=== PATIENT | male | born 1950 | race Caucasian/White ===

== ENCOUNTER 2019-03-02 12:09 | Inpatient (IN) | payer MEDICARE, BC ==
[2019-03-02] MEDS ORDERED: Non-Formulary Medication 1 Each (Betamethasone Dipropionate [Betamethasone Diprop Augmente TOP PRN (17:17)
[2019-03-02] MEDS ORDERED: Docusate Sodium 100 MG Cap PO PRN (17:17)
--- NOTE | 2019-03-02 17:29 | PCM.HP.2 ---
H&P History of Present Illness - General Date of Service: 03/02/19 Admit Problem/Dx: Admission Diagnosis/Problem Admission Diagnosis/Problem Status post total right knee replacement Source of Information: Patient History Limitations: Reports: No Limitations - History of Present Illness Initial Comments - Free Text/Narative: Patient admitted for assistance, PT/OT, after undergoing right total knee replacement. No acute changes with health or baseline pain other than discomfort associated with right knee replacement. Reports that pain is controllable with current meds. ROS negative for any other acute changes. Right Knee Pain Score (Numeric/FACES): 7 - Related Data Allergies/Adverse Reactions: Allergies Allergy/AdvReac Type Severity Reaction Status Date / Time celecoxib [From Celebrex] Allergy Bleeding Verified 05/25/13 21:17 naproxen sodium [From Aleve] Allergy Bleeding Verified 05/25/13 21:17 zolpidem tartrate Allergy Disorientat Verified 05/25/13 21:18 [From Ambien] ion Home Medications: Home Meds Acetaminophen 1,000 mg PO Q6H PRN 03/02/19 [History] Allopurinol [Zyloprim] 100 mg PO DAILY 03/02/19 [History] Apixaban [Eliquis] 2.5 mg PO BID 03/02/19 [History] Betamethasone Dipropionate [Betamethasone Diprop Augmented] 1 applic TOP BID PRN 03/02/19 [History] Calcitriol 1 cap PO Q2D 03/02/19 [History] Calcium Carbonate [Tums] 500 mg PO TIDMEALS 03/02/19 [History] Cholecalciferol (Vitamin D3) [Vitamin D3] 1 tab PO DAILY 03/02/19 [History] Clotrimazole [Clotrimazole 1%] 1 applic TOP BID 03/02/19 [History] Docusate Sodium 1 cap PO DAILY PRN 03/02/19 [History] Gabapentin [Neurontin] 300 mg PO DAILY 03/02/19 [History] Multivit-Min/Iron/Folic Acid/K [Bariatric Mv-Iron 45 mg Cap] 1 cap PO BID [History] Oxybutynin Chloride [Oxybutynin Chloride ER] 15 mg PO DAILY 03/02/19 [History] Pantoprazole Sodium [Protonix] 20 mg PO BIDAC 03/02/19 [History] Polyethylene Glycol 3350 [MiraLAX] 17 gm PO DAILY 03/02/19 [History] Potassium Citrate [Potassium Citrate ER] 1 tab PO TIDMEALS 03/02/19 [History] Sennosides/Docusate Sodium [Dok Plus Tablet] 1 tab PO BID 03/02/19 [History] Sertraline [Zoloft] 50 mg PO DAILY 03/02/19 [History] amLODIPine [Norvasc] 2.5 mg PO DAILY 03/02/19 [History] oxyCODONE 1 - 2 tab PO Q4H PRN 03/02/19 [History] predniSONE [Prednisone] 3 mg PO DAILY 03/02/19 [History] Past Medical History HEENT History: Reports: Impaired Vision Cardiovascular History: Reports: Arrhythmia (frequent PVCs), Hypertension, Other (See Below) (venous insufficiency/lymphedema lower extrem.) Respiratory History: Reports: Sleep Apnea Gastrointestinal History: Reports: Bowel Obstruction, Chronic Constipation, GERD , GI Bleed, Other (See Below) Other Gastrointestinal History: Hx of abdominal hernia. hx of abdominal hernia Hx of Gastric bypass Genitourinary History: Reports: Chronic Renal Insuffiency, Renal Calculus, Urinary Incontinence Musculoskeletal History: Reports: Arthritis, Back Pain, Chronic, Gout, Osteoporosis, Other (See Below) (lumbar spine stenosis, cervical spondylosis/ spinal fusion) Neurological History: Reports: Headaches, Chronic, Neuropathy, Peripheral Endocrine/Metabolic History: Reports: Diabetes, Type II, Osteoporosis Hematologic History: Reports: Anemia, Iron Deficiency Immunologic History: Reports: Other (See Below) (Psoriatic arthritis) - Past Surgical History GI Surgical History: Reports: Bariatric Procedure, Cholecystectomy, Colonoscopy , Hernia, Inguinal, Hernia Repair/Other Neurological Surgical History: Reports: Lumbar Spine Musculoskeletal Surgical History: Reports: Hip Replacement, Knee Replacement Social & Family History - Family History HEENT: Reports: Cataract, Hearing Impairment Cardiac: Reports: Hypertension, [place] Musculoskeletal: Reports: Arthritis, Gout Endocrine/Metabolic: Reports: Diabetes, type II Dermatologic: Reports: Psoriasis Oncologic: Reports: Pancreatic - Tobacco Use Smoking Status *Q: Former Smoker Used Tobacco, but Quit: Yes Month/Year Tobacco Last Used: 20 years ago Tobacco Use Comment: Smoked 20 years ago Second Hand Smoke Exposure: No - Caffeine Use Caffeine Use: Reports: Coffee - Alcohol Use Alcohol Use History: No Days Per Week of Alcohol Use: 0 Date/Time of Last Drink Comment: 10-12 years ago - Recreational Drug Use Recreational Drug Use: No Drug Use in Last 12 Months: No H&P Review of Systems - Review of Systems: Review Of Systems: Comprehensive ROS is negative, except as noted in HPI. Exam - Exam Exam: See Below - Vital Signs Vital Signs: Last Vital Signs Temp 36.6 C 03/02/19 15:42 Pulse 68 03/02/19 15:42 Resp 20 03/02/19 15:42 BP 121/74 03/02/19 15:42 Pulse Ox 92 L 03/02/19 15:42 Weight: 94.801 kg - Exam Quality Assessment: DVT Prophylaxis General: Alert, Oriented, Cooperative HEENT: Conjunctiva Clear, EOMI, Hearing Intact, Mucosa Moist & [place], Nares Patent, Pupils Equal, Pupils Reactive Neck: Supple, Trachea Midline Lungs: Clear to Auscultation, Normal Respiratory Effort Cardiovascular: Irregular Rhythm GI/Abdominal Exam: Normal Bowel Sounds, Soft, Non-Tender, No Distention (Male) Exam: Deferred Rectal (Males) Exam: Deferred Back Exam: No: CVA Tenderness (L), CVA Tenderness (R), Muscle Spasm, Paraspinal Tenderness, Vertebral Tenderness Extremities: Normal Capillary Refill, Other (equal strength bilaterally upper and lower limbs) Skin: Warm, Dry Psychiatric: Alert, Normal Affect, Normal Mood - Problem List (1) Status post right knee replacement SNOMED Code(s): 4773172473168, 395684662, 5651731258645 ICD Code: Z96.651 - PRESENCE OF RIGHT ARTIFICIAL KNEE JOINT Status: Acute Priority: High Current Visit: Yes Onset Date: ~02/26/19 Problem Details : Here for PT/OT s/p procedure. (2) Hypertension SNOMED Code(s): 62742357 ICD Code: I10 - ESSENTIAL (PRIMARY) HYPERTENSION Status: Chronic Priority : Low Current Visit: No Problem Details: stable per patient. Monitor trends Qualifiers: Hypertension type: essential hypertension Qualified Code(s): I10 - Essential (primary) hypertension (3) Sleep apnea SNOMED Code(s): 42205413 ICD Code: G47.30 - SLEEP APNEA, UNSPECIFIED Status: Chronic Priority: Low Current Visit: No Problem Details: stable per patient Qualifiers: Sleep apnea type: unspecified type Qualified Code(s): G47.30 - Sleep apnea , unspecified (4) Osteoporosis SNOMED Code(s): 03664807 ICD Code: M81.0 - AGE-RELATED OSTEOPOROSIS W/O CURRENT PATHOLOGICAL FRACTURE Status: Chronic Priority: Low Current Visit: No Problem Details: stable per patient Qualifiers: Osteoporosis type: age-related Presence of current pathological fracture: without current pathological fracture Qualified Code(s): M81.0 - Age-related osteoporosis without current pathological fracture (5) Iron deficiency anemia SNOMED Code(s): 99840794 ICD Code: D50.9 - IRON DEFICIENCY ANEMIA, UNSPECIFIED Status: Chronic Priority: Low Current Visit: No Problem Details: stable per patient. Recheck labs in 2 days. Qualifiers: Iron deficiency anemia type: unspecified iron deficiency Qualified Code(s) : D50.9 - Iron deficiency anemia, unspecified (6) Chronic kidney disease SNOMED Code(s): 496726749 ICD Code: N18.9 - CHRONIC KIDNEY DISEASE, UNSPECIFIED Status: Chronic Priority: Low Current Visit: No Problem Details: stable per patient Qualifiers: Chronic kidney disease stage: stage 3 (moderate) Qualified Code(s): N18.3 - Chronic kidney disease, stage 3 (moderate) (7) Type 2 diabetes mellitus SNOMED Code(s): 95793754 ICD Code: E11.9 - TYPE 2 DIABETES MELLITUS WITHOUT COMPLICATIONS Status: Chronic Priority: Low Current Visit: Yes Problem Details: stable per patient Qualifiers: Diabetes mellitus buttermaker insulin use: without correction use (8) Degenerative arthritis of spine SNOMED Code(s): 6303084 ICD Code: M47.9 - SPONDYLOSIS, UNSPECIFIED Status: Chronic Priority: Low Current Visit: No Problem Details: significant issues with stenosis/ arthritic changes/chronic pain down length of spine (9) GERD (gastroesophageal reflux disease) SNOMED Code(s): 234195311 ICD Code: K21.9 - GASTRO-ESOPHAGEAL REFLUX DISEASE WITHOUT ESOPHAGITIS Status: Chronic Priority: Low Current Visit: Yes Qualifiers: Esophagitis presence: esophagitis presence not specified Qualified Code(s) : K21.9 - Gastro-esophageal reflux disease without esophagitis (10) Chronic pain SNOMED Code(s): 89674558 ICD Code: G89.29 - OTHER CHRONIC PAIN Status: Chronic Priority: Low Current Visit: Yes Problem Details: Pain medication agreement with primary providers. 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 SNOMED Code(s): 42889228 ICD Code: I49.3 - VENTRICULAR PREMATURE DEPOLARIZATION Status: Chronic Priority: Low Current Visit: No Problem Details: Patient reports multiple workups in past and says that findings were 'unremarkable' (13) S/P gastric bypass SNOMED Code(s): 640603046, 214601890, 135944910, 875395353 ICD Code: Z98.84 - BARIATRIC SURGERY STATUS Status: Chronic Priority: Low Current Visit: No Problem Details: H/x bariatric surgery Problem List Initiated/Reviewed/Updated: Yes Orders Last 24hrs: Active Orders 24 hr Category Date Time Status Patient Status [ADT] Routine ADT 03/02/19 17:13 Ordered Ambulate [RC] ASDIRECTED Care 03/02/19 17:13 Ordered Height and Weight [RC] UPON Care 03/02/19 17:13 Ordered Pulse Oximetry [RC] PRN Care 03/02/19 17:16 Ordered Up ad Shazia [RC] ASDIRECTED Care 03/02/19 17:13 Ordered Vital Signs [RC] QSHIFT Care 03/02/19 17:13 Ordered Consult to Physical Therapy [PT Evaluation and Cons 03/02/19 17:17 Ordered Treatment] [CONS] Routine OT Evaluation and Treatment [CONS] Routine Cons 03/02/19 17:17 Ordered Full Liquid Diet [DIET] Diet 03/02/19 Dinner Ordered Acetaminophen [Tylenol Extra Strength] Med 03/02/19 17:17 Ordered 1,000 mg PO Q6H PRN Allopurinol [Zyloprim] Med 03/03/19 08:00 Ordered 100 mg PO DAILY Apixaban [Eliquis] Med 03/02/19 18:00 Ordered 2.5 mg PO BID Betamethasone Dipropionate [Betamethasone Diprop Med 03/02/19 17:17 Ordered Augmented] 1 applic TOP BID PRN Calcitriol [Rocaltrol] Med 03/02/19 17:30 Ordered 1 cap PO Q2D Calcium Carbonate [Tums] Med 03/02/19 18:00 Ordered 500 mg PO TIDMEALS Cholecalciferol (Vitamin D3) [Vitamin D3] Med 03/03/19 08:00 Ordered 1 tab PO DAILY Clotrimazole [Clotrimazole 1%] Med 03/02/19 18:00 Ordered 1 applic TOP BID Docusate Sodium [Colace] Med 03/02/19 17:17 Ordered 1 cap PO DAILY PRN Docusate Sodium/Sennosides [Senna Plus] Med 03/02/19 18:00 Ordered 1 tab PO BID Gabapentin [Neurontin] Med 03/03/19 08:00 Ordered 300 mg PO DAILY Oxybutynin Chloride [Oxybutynin Chloride ER] Med 03/03/19 08:00 Ordered 15 mg PO DAILY Pantoprazole Sodium [Protonix] Med 03/02/19 17:30 Ordered 20 mg PO BIDAC Polyethylene Glycol 3350 [MiraLAX] Med 03/03/19 08:00 Ordered 17 gm PO DAILY Potassium Citrate [Potassium Citrate ER] Med 03/02/19 18:00 Ordered 1 tab PO TIDMEALS Sertraline [Zoloft] Med 03/03/19 08:00 Ordered 50 mg PO DAILY amLODIPine [Norvasc] Med 03/03/19 08:00 Ordered 2.5 mg PO DAILY oxyCODONE Med 03/02/19 17:17 Ordered 5 - 10 mg PO Q4H PRN predniSONE Med 03/03/19 08:00 Ordered 3 mg PO DAILY Resuscitation Status Routine Resus Stat 03/02/19 17:13 Ordered Medication Orders Acetaminophen (Tylenol Extra Strength) 1,000 mg PO Q6H PRN PRN Reason: Pain Allopurinol (Zyloprim) 100 mg PO DAILY JO Apixaban (Eliquis) 2.5 mg PO BID JO Calcitriol (Rocaltrol) mcg PO Q2D JO Calcium Carbonate/Glycine (Tums) 500 mg PO TIDMEALS JO Clotrimazole (Clotrimazole 1%) gm TOP BID JO Docusate Sodium (Colace) mg PO DAILY PRN PRN Reason: Constipation Gabapentin (Neurontin) 300 mg PO DAILY JO Non-Formulary Medication (Amlodipine [Norvasc]) 2.5 mg PO DAILY JO Non-Formulary Medication (Betamethasone Dipropionate [Betamethasone Diprop Augmented]) 1 applic TOP BID PRN PRN Reason: Rash Non-Formulary Medication (Cholecalciferol (Vitamin D3) [Vitamin D3]) 1 tab PO DAILY JO Non-Formulary Medication (Oxybutynin Chloride [Oxybutynin Chloride Er]) 15 mg PO DAILY JO Non-Formulary Medication (Pantoprazole Sodium [Protonix]) 20 mg PO BIDAC JO Non-Formulary Medication (Potassium Citrate [Potassium Citrate Er]) 1 tab PO TIDMEALS JO Oxycodone HCl (Oxycodone) 5 - 10 mg PO Q4H PRN PRN Reason: Pain Polyethylene Glycol (Miralax) 17 gm PO DAILY [facility] Prednisone (Prednisone) 3 mg PO DAILY JO Senna/Docusate Sodium (Senna Plus) 1 tab PO BID JO Sertraline HCl (Zoloft) 50 mg PO DAILY [facility] Assessment/Plan Comment:: as above. Patient plans on spending a few days on swing bed receiving PT/OT with discharge back to home planned once cleared. - Mortality Measure Prognosis:: Good
[2019-03-02] MEDS ORDERED: Clotrimazole 1% Crm 15 GM Tube TOP SCH ×2 (18:00→20:00)
[2019-03-02] MEDS ORDERED: POTASSIUM CITRATE PO SCH (18:00)
[2019-03-02] MEDS: Pantoprazole 40 MG Tab.CR PO SCH (18:07)
[2019-03-02] MEDS: Apixaban 2.5 MG Tab PO SCH (18:07)
[2019-03-02] MEDS: Calcitriol 0.25 MCG Cap PO SCH (18:21)
[2019-03-02] MEDS: Calcium Carbonate 500 MG Tab.Chew PO SCH (18:21)
[2019-03-02] MEDS ORDERED: Triamcinolone Acetonide 0.1% Crm 15 GM Tube TOP SCH ×2 (20:00→20:59)
[2019-03-02] MEDS: oxyCODONE 5 MG Tab PO PRN (20:22)
[2019-03-03] MEDS: oxyCODONE 5 MG Tab PO PRN ×2 (06:12→20:37)
[2019-03-03] MEDS ORDERED: Oxybutynin 5 MG Tab PO SCH (08:00)
[2019-03-03] MEDS ORDERED: TRIAMCINOLONE ACETONIDE 0.5% TOP SCH (08:00)
[2019-03-03] MEDS: Pantoprazole 40 MG Tab.CR PO SCH ×2 (08:04→17:21)
[2019-03-03] MEDS: Apixaban 2.5 MG Tab PO SCH ×2 (08:05→17:21)
[2019-03-03] MEDS: Gabapentin 300 MG Cap PO SCH (08:05)
[2019-03-03] MEDS: Polyethylene Glycol 3350 Powder 17 GM Packet PO SCH (08:05)
[2019-03-03] MEDS: amLODIPine 5 MG Tab PO SCH (08:06)
[2019-03-03] MEDS: predniSONE 1 MG Tab PO SCH (08:07)
[2019-03-03] MEDS: Triamcinolone Acetonide 0.5% Crm 15 GM Tube TOP SCH ×2 (08:09→20:39)
[2019-03-03] MEDS: Allopurinol 100 MG Tab PO SCH (08:10)
[2019-03-03] MEDS: Calcium Carbonate 500 MG Tab.Chew PO SCH ×3 (08:10→17:22)
[2019-03-03] MEDS: Sertraline 50 MG Tab PO SCH (08:10)
[2019-03-03] MEDS: Cholecalciferol (Vitamin D3) 25 MCG Tab PO SCH (08:10)
--- OUTSIDE RECORDS SUMMARY | 2019-03-03 13:31 | XMSREPORT ---
:1950 Author Organization [facility] Address [address] [place] [address] Care Team Providers Name Role Phone DominguezMariano PA-C Unavailable Yocasta Torres RN, CDE Unavailable Porter Mcfadden MD Unavailable Donovan Hudson MD Unavailable Tommie Ledesma MD Primary Care Provider Tommie Ledesma MD Attributed Provider Marika Palacios RN [employer] AttendantBusiness Integration Analyst Reason for Referral Comprehensive Primary Care Plus (Routine) Status Reason Specialty Diagnoses / Referred By Referred To Procedures Contact Contact New Request Gastroenterology Diagnoses History of gastric bypass Edgar, Loio Digestive MD David [address] [place] [address] [place] [address] Phone: Scheduling Instructions This is an electronic referral. Reason for Visit Auth/Cert (Routine) Status Reason Specialty Diagnoses / Referred By Referred To Procedures Contact Contact Continuity of Care Diagnoses Unilateral primary osteoarthritis, right knee Genaro Vallecillo, Procedures ARTHROPLASTY KNEE CONDYLE & PLATEAU MEDIAL & LAT COMPARTMENTS DENNIS WISDOM MD [address] [place] [address] Encounter Details Date Type Department Care Team Description 02/26/2019 - Hospital Encounter [facility] Genaro Vallecillo MD [address] [place] [address] [phone] Psoriatic arthritis 03/02/2019 CENTER 8CD MED SURG Paul Singh MD [address] [place] [address] [phone] ([facility]) David Brock MD [address] [place] [address] [phone] [address] [place], [place] [id number] Allergies Active Allergy Reactions Severity Noted Date Comments Gnp Naproxen Sodium Nausea and Vomiting, 09/23/2011 anemia Diarrhea, Other (Specify in Comments) Zolpidem Tartrate Other (Specify in 09/23/2011 Balance issues, sleep Comments) walking Aspirin Other (Specify in 11/06/2012 2006 had GI bleeding Comments) occult source and aspirin stopped Celecoxib Nausea and Vomiting, 09/23/2011 GI bleed Diarrhea documented as of this encounter (statuses as of 03/02/2019) Medications Medication Sig Dispensed Refills Start Date End Date Status vitamin D, Take 1,000 Units 0 Active cholecalciferol, (D by mouth 1 time 1000) 1000 UNITS per day. CAPS blood glucose test 1 time per day Use 100 each 4 01/06/2017 Active strip (CHUNG CONTOUR to test blood NEXT) sugar one time a STRPIndications: day at alternating Type 2 diabetes times. Not on mellitus without insulin ICD complication, E11.9 without long-term current use of insulin ([facility]) Blood Glucose 1 each 2 times a 20 each 4 12/01/2017 Active Monitoring Suppl day (CONTOUR NEXT MONITOR) w/Device KITIndications: Type 2 diabetes mellitus without complication, without long-term current use of insulin ([facility]) acetaminophen Take 2 tablets 0 09/17/2018 Active (TYLENOL) 500 mg (1,000 mg) by tablet mouth every 6 hours as needed for headache pantoprazole Take 1 tablet (20 90 tablet 3 09/17/2018 Active (PROTONIX) 20 mg mg) by mouth 2 enteric coated times a day before tabletIndications: meals GI bleed allopurinol Take 1 tablet (100 90 tablet 4 01/12/2019 01/17/2020 Active (ZYLOPRIM) 100 mg mg) by mouth 1 tabletIndications: time per day Idiopathic gout, unspecified chronicity, unspecified site Additional information Patient taking differently: 100 mg Oral Bedtime, Informant: Self, Reported on 02/16/2019 9:28 AM amLODIPine (NORVASC) 2.5 mg Take 1 tablet 90 tablet 4 01/12/20192019 Active tabletIndications: Essential (2.5 mg) by hypertension mouth 1 time per day Additional information Patient taking differently: 2.5 mg Oral Every evening, Informant: Self, Reported on 02/16/2019 9:28 AM calcitriol (ROCALTROL) 0.25 Take 1 capsule 90 capsule 4 01/12/20192019 Active mcg capsuleIndications: (0.25 mcg) by Secondary mouth Every hyperparathyroidism (HCC) other day clotrimazole (LOTRIMIN-AF) Apply to 1 Tube 4 01/12/2019 01/17/2020 Active 1 % creamIndications: Tinea affected area 2 cruris times a day For groin rash gabapentin (NEURONTIN) 300 Take 1 capsule 30 capsule 0 01/12/2019 Active mg capsuleIndications: S/P (300 mg) by cervical spinal fusion mouth 1 time per day Additional information Patient taking differently: 300 mg Oral Bedtime, Informant: Self, Reported on 02/16/2019 9:28 AM Lancets (MICROLET) 1 each 2 times a 100 each 4 01/12/2019 01/17/2020 Active MISCIndications: Type 2 day Use to test diabetes mellitus without blood sugars one complication, without time a day Not long-term current use of on insulin ICD insulin (HCC) E11.9 potassium citrate Take 1 tablet (10 270 tablet 4 01/12/2019 01/17/2020 Active (UROCIT-K) 10 mEq mEq) by mouth 3 TBCRIndications: Kidney times a day with stones meals sertraline (ZOLOFT) 50 mg Take 1 tablet (50 90 tablet 4 01/12/20192019 Active tabletIndications: mg) by mouth 1 Dysthymia time per day Additional information Patient taking differently: 50 mg Oral Bedtime, Informant: Self, Reported on 02/16/2019 9:28 AM oxybutynin (DITROPAN-XL) 15 mg Take 1 tablet (15 mg) 90 tablet 3 2018 Active SR tablet (24 hr)Indications: by mouth 1 time per Lower urinary tract symptoms day (LUTS), Urge incontinence of urine Additional information Patient taking differently: 15 mg Oral Bedtime, Informant: Self, Reported on 02/16/2019 9:28 AM bariatric advantage Take 1 tablet 180 4 01/22/2019 04/22/2019 Active advanced multi EA chewable by mouth 2 tablet multivitaminIndications: times a day S/P gastric bypass predniSONE 1 mg Take 3 tablets 270 1 02/08/2019 Active tabletIndications: (3 mg) by tablet Psoriatic arthritis (HCC), mouth 1 time Psoriasis per day betamethasone dipropionate Apply 0 Active augmented (DIPROLENE AF) topically 2 0.05 % CREA times a day as needed for rash (on elbows and hands) Contour NEXT test 2 times a day 200 each 4 02/09/2019 Active stripIndications: Type 2 diabetes mellitus without complication, without long-term current use of insulin ([facility]) apixaban (ELIQUIS) 2.5 MG Take 1 tablet 0 03/02/2019 03/12/2019 Active tabletIndications: (2.5 mg) by Prophylaxis of DVT in mouth 2 times Orthopedic Surgery a day for 10 days Indications: Prophylaxis of Deep Vein Thrombosis in Orthopedic Surgery polyethylene glycol Take 1 packet 0 03/03/2019 Active (MIRALAX) by mouth 1 packetIndications: S/P time per day total knee arthroplasty, Dissolve in 4 right to 8 ounces of water, juice, soda, coffee, tea. senna-docusate sodium Take 1 tablet 0 03/02/2019 Active (SENOKOT-S;PERICOLACE) by mouth 2 8.6-50 MG times a day tabletIndications: S/P total knee arthroplasty, right oxyCODONE (OXY-IR) 5 mg Take 1 tab for 0 03/02/2019 Active tablet (immediate moderate pain release)Indications: S/P and 2 tabs for total knee arthroplasty, severe pain right every 4 hours as needed by mouth. docusate sodium (COLACE) Take 1 capsule 0 03/02/2019 Active 100 mg capsule (100 mg) by mouth 1 time a day as needed for constipation calcium carbonate (TUMS) Take 1 tablet 90 0 03/02/2019 Active 500 MG chewable tablet (500 mg) by tablet mouth 3 times a day with meals Calcium supplement calcium carbonate (TUMS) Take 1 tablet 90 0 07/14/2012 03/02/2019 Discontinued 500 MG chewable tablet by mouth 3 tablet (Reorder) times a day with meals. diphenhydrAMINE HCl, Take 50 mg by 0 03/02/2019 Discontinued Sleep, (ZZZQUIL PO) mouth at (Stop Taking bedtime as at Discharge) needed furosemide (LASIX) 20 mg Take 1 tablet 30 4 01/12/2019 03/02/2019 Discontinued tabletIndications: CKD (20 mg) by tablet (Stop Taking (chronic kidney disease) mouth 1 time a at Discharge) stage 3, GFR 30-59 ml/min day as needed (HCC), Lower extremity (swelling) edema miconazole (MONISTAT-DERM) Apply 1 1 Tube 4 01/12/2019 03/02/2019 Discontinued 2 % CREAIndications: Tinea application (Stop Taking cruris topically 2 at Discharge) times a day triamcinolone acetonide Apply 0 03/02/2019 Discontinued (KENALOG,ARISTOCORT) 0.1 % topically 2 (Stop Taking cream times a day at Discharge) docusate sodium (COLACE) Take 100 mg by 0 03/02/2019 Discontinued 100 mg capsule mouth 1 time a (Reorder) day as needed HYDROcodone-acetaminophen TAKE 1 TABLET 60 0 02/18/2019 03/02/2019 Discontinued (NORCO) 5-325 mg BY MOUTH EVERY tablet (Stop Taking tabletIndications: 12 HOURS at Discharge) Cervical spondylosis with NEEDED FOR myelopathy and MODERATE PAIN radiculopathy, Lumbar OR SEVERE PAIN degenerative disc disease oxyCODONE (OXY-IR) 5 mg Take 1-2 0 03/02/2019 03/02/2019 Discontinued tablet (immediate tablets (5-10 release)Indications: S/P mg) by mouth total knee arthroplasty, Every 4 hours right as needed for moderate pain or severe pain documented as of this encounter (statuses as of 03/02/2019) Active Problems Problem Noted Date Lower urinary tract symptoms (LUTS) 12/09/2018 Frequent PVCs 09/28/2018 GI bleed 09/15/2018 Overview: Related to ulcer at gastrojejunal anastamotic site in 09/2018. Chronic headache 07/10/2018 Overview: Followed by neurology. MRI brain showing abnormal splenule lesion that was overall stable on follow up MRI. Urinary incontinence 04/06/2018 Peripheral polyneuropathy 04/06/2018 Tension-type headache, not intractable 03/09/2018 Lumbar degenerative disc disease 01/15/2018 Primary osteoarthritis of right knee 11/14/2017 Chronic left shoulder pain 11/14/2017 Status post total left knee replacement 07/16/2017 Overview: 06/17/17 History of gastric ulcer 01/06/2017 Chronic GERD 01/06/2017 S/P cervical spinal fusion 10/21/2016 Pain medication agreement signed 08/28/2016 Overview: Prescriber: Tommie Ledesma MD Before prescribing any opioids for this patient, please contact the front end software developer staff at No information on file.. Pharmacy: [facility] Medication: hydrocodone Date Contract Signed: 01/01/16 Patient needs to see prescriber at intervals of: every 6 months Last urine / blood drug screen: 01/01/16 Incisional hernia, without obstruction or gangrene 07/01/2016 Overview: S/p repair. History of gastric bypass 01/01/2016 Cervical spondylosis with myelopathy and radiculopathy 05/29/2015 Neurogenic claudication due to lumbar spinal stenosis 03/29/2015 Encounter for long-term (current) use of high-risk medication 03/14/2015 Type 2 diabetes mellitus with complication 02/19/2015 Gout 09/02/2014 Bilateral carpal tunnel syndrome 08/29/2014 CKD (chronic kidney disease) stage 3, GFR 30-59 ml/min 04/19/2014 Iron deficiency anemia 12/14/2013 Status post total replacement of right hip 06/14/2013 Overview: 05/17/13 Psoriasis 04/20/2013 History of kidney stones 05/27/2012 Osteoporosis 02/19/2012 Overview: Follows with rheumatology. Has been on reclast in the past. Bone density improved to osteopenia on DEXA in 2017. Improved further on DEXA in 2019. Psoriatic arthritis 02/19/2012 Essential hypertension 02/02/2012 Obstructive sleep apnea 02/02/2012 Overview: Bi-PAP 14/10 cmH2O/AHI 29 Wears consistently Venous insufficiency of leg 10/29/2011 Overview: S/P Right GSV KULDEEP 12/21/11 and Left GSV KULDEEP 05/21/[address] Hobson October 20, 2015 L) GSV ELVS and [address] Kauffman. Last Assessment & Plan: With ongoing edema and symptoms of aching and fatigue, recommend trying to transition to compression stockings 20 to 30mmHg for better consistent pressure throughout the day as there is concern his circ aid wraps may be loosening. Will repeat venous insufficieny with mapping in 3 months and f/u appointment at that time to see how the compression stockings are working and review his results. Aneurysm of splenic artery 03/21/2011 Overview: 1) 03/21/11 Mesenteric angiogram of 3 cm splenic artery aneurysm treated with coil embolization per Dr. Kauffman with exclusion. 2) 04/30/13 F/u mesenteric angiogram confirmed exclusion of previously embolized splenic artery aneurysm with no new splenic artery aneurysms. Last Assessment & Plan: Patient seen by Dr. Kauffman today who also reviewed CTA abdomen; splenic artery aneurysm is stable s/p coil embolization and recommend f/u in one year with CTA abdomen to monitor this Lymphedema 11/02/2010 Overview: Wears compression stockings and compression wraps over that on his lower legs. History of Helicobacter pylori infection 06/19/2007 Obesity, morbid, BMI 40.0-49.9 02/26/2006 Overview: Gastric bypass 1999 documented as of this encounter (statuses as of 03/02/2019) Resolved Problems Problem Noted Date Resolved Date Osteoarthritis of knees, bilateral 04/01/2016 11/14/2017 Symptomatic varicose veins of both lower extremities 08/08/2015 07/10/2018 Dysphagia 12/06/2013 01/06/2017 Small bowel obstruction due to adhesions 06/07/2013 01/01/2016 Overview: 2-2013 Medical home 02/15/2013 03/07/2015 Hematospermia 02/15/2013 07/10/2018 SYED (acute kidney injury) 09/11/2012 07/01/2016 Encounter for long-term (current) use of other medications 02/19/20122015 Spinal stenosis, lumbar region, without neurogenic claudication 09/27/2011 Hemorrhage of rectum and anus 03/19/2011 02/02/2012 Hemorrhage of gastrointestinal tract 06/19/2007 02/02/2012 documented as of this encounter (statuses as of 03/02/2019) Immunizations Name Administration Dates Next Due FLU VACCINE TRIVALENT 02/11/2012 MULTIDOSE(Fluvirin,Afluria) Influenza Trivalent w/preserv 02/11/2012, 02/06/2011, 02/05/2010, 03/16/2009, 03/20/2006 FLU VACCINE HIGH DOSE 65YR+(Fluzone) 01/12/2019, 01/12/2019, 01/05/2018, 01/05/2018 FLU VACCINE MULTIDOSE 03/07/2015, 02/14/2014 0.5mL(6MO+Fluzone/Flulaval,Afluria) FLU VACCINE SINGLE DOSE 01/06/2017, 03/20/2016 0.5mL(6MO+Fluzone/Flulaval/Fluarix,3Y R+Afluria) H1N1 Injectable Vaccine 03/22/2009 Ibandronate Sodium 3mg/3ml Iv Kit 11/19/2011 02/19/2012 Influenza Vaccine,unspecified 01/06/2017, 03/20/2016, 03/07/2015, 02/14/2014, 02/06/2011, 02/05/2010, 03/16/2009, 01/27/2008, 03/20/2006 Pneumococcal Conj PCV13 01/06/2017 Pneumococcal Polysaccharide PPSV23 06/09/2017, 02/17/2001 Reclast (Zoledronic Acid) 03/20/2016, 03/08/2015, 02/28/2014, 03/21/2017 02/18/2013, 02/18/2012 TDAP 06/19/2007 Td(adult)preservative free 01/05/2018 documented as of this encounter Social History Tobacco Use Types Packs/Day Years Used Date Former Smoker Cigarettes 1 25 01/07/1972 - 04/14/2000 Smokeless Tobacco: Never Used Alcohol Use Drinks/Week oz/Week Comments No Hasn't had any alcohol since 03/2006 Sexually Active Control Partners Comments Not Currently None Female Sex Assigned at Date Recorded Male 03/24/2018 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 documented as of this encounter Last Filed Vital Signs Vital Sign Reading Time Taken Comments Blood Pressure 155/69 03/02/2019 10:52 AM RECORDS CLERK Pulse 56 03/02/2019 10:52 AM RECORDS CLERK Temperature 36.9 C (98.5 F) 03/02/2019 10:52 AM RECORDS CLERK Respiratory Rate 15 03/02/2019 10:52 AM RECORDS CLERK Oxygen Saturation 94% 03/02/2019 10:52 AM RECORDS CLERK Inhaled Oxygen Concentration - - Weight 92 kg (202 lb 13.2 oz) 02/26/2019 7:51 AM RECORDS CLERK Height 161.3 cm (5' 3.5") 02/26/2019 7:51 AM RECORDS CLERK Body Mass Index 35.36 02/26/2019 7:51 AM RECORDS CLERK documented in this encounter Functional Status Functional Status Response Date of Assessment Is the person deaf or does he/she have serious difficulty No 02/26/2019 hearing? Is this person blind or does he/she have difficulty No 02/26/2019 seeing even when wearing glasses? Do you have difficulty with walking, balance, climbing Yes 02/26/2019 stairs, or had a fall in the last 3 months? Does the patient have difficulty dressing or bathing? No 02/23/2019 Because of a physical, mental, or emotional condition; No 02/23/2019 does this person have difficulty doing errands alone such as visiting a doctor's office or shopping? Cognitive Status Response Date of Assessment Because of a physical, mental, or emotional condition; No 02/23/2019 does this person have serious difficulty concentrating, remembering, or making decisions? documented as of this encounter Discharge Summaries David Hernández MD - 03/02/2019 12:43 PM CST [facility] Discharge Summary Name: Johnny Patino [place] #: [id number] : 1950 69yr PCP: Tommie Ledesma MD Date of Admission: 02/26/2019 7:18 AM Date of Discharge: 03/02/2019 Attending Physician: David Hernández MD Discharge Diagnosis: 1. Psoriatic arthritis s/p right TKA 2. Dysphagia with food impaction 3. Hypertension 4. Hx of gastric bypass 5. Depression 6. CKD stage III 7. Diabetes mellitus type II 8. SERENA Discharge Medications: Medication List START taking these medications apixaban 2.5 MG tablet Commonly known as: ELIQUIS Take 1 tablet (2.5 mg) by mouth 2 times a day for 10 days Indications: Prophylaxis of Deep Vein Thrombosis in Orthopedic Surgery oxyCODONE 5 mg tablet (immediate release) Commonly known as: OXY-IR Take 1-2 tablets (5-10 mg) by mouth Every 4 hours as needed for moderate pain or severe pain polyethylene glycol packet Commonly known as: MIRALAX Take 1 packet by mouth 1 time per day Dissolve in 4 to 8 ounces of water, juice , soda, coffee, tea. Start taking on: 03/03/2019 senna-docusate sodium 8.6-50 MG tablet Commonly known as: SENOKOT-S;PERICOLACE Take 1 tablet by mouth 2 times a day CHANGE how you take these medications allopurinol 100 mg tablet Commonly known as: ZYLOPRIM Take 1 tablet (100 mg) by mouth 1 time per day What changed: when to take this amLODIPine 2.5 mg tablet Commonly known as: NORVASC Take 1 tablet (2.5 mg) by mouth 1 time per day What changed: when to take this gabapentin 300 mg capsule Commonly known as: NEURONTIN Take 1 capsule (300 mg) by mouth 1 time per day What changed: when to take this oxybutynin 15 mg SR tablet (24 hr) Commonly known as: DITROPAN-XL Take 1 tablet (15 mg) by mouth 1 time per day What changed: when to take this sertraline 50 mg tablet Commonly known as: ZOLOFT Take 1 tablet (50 mg) by mouth 1 time per day What changed: when to take this CONTINUE taking these medications acetaminophen 500 mg tablet Commonly known as: TYLENOL bariatric advantage advanced multi EA chewable multivitamin Take 1 tablet by mouth 2 times a day betamethasone dipropionate augmented 0.05 % Crea Commonly known as: DIPROLENE AF * blood glucose test strip Generic drug: blood glucose test strip 1 time per day Use to test blood sugar one time a day at alternating times. Not on insulin ICD E11.9 * CONTOUR NEXT Strp 2 times a day calcitriol 0.25 mcg capsule Commonly known as: ROCALTROL Take 1 capsule (0.25 mcg) by mouth Every other day clotrimazole 1 % cream Commonly known as: LOTRIMIN-AF Apply to affected area 2 times a day For groin rash CONTOUR NEXT MONITOR w/Device Kit 1 each 2 times a day D 1000 25 MCG (1000 UT) Caps Generic drug: vitamin D (cholecalciferol) docusate sodium 100 mg capsule Commonly known as: COLACE microlet Misc 1 each 2 times a day Use to test blood sugars one time a day Not on insulin ICD E11.9 pantoprazole 20 mg enteric coated tablet Commonly known as: PROTONIX Take 1 tablet (20 mg) by mouth 2 times a day before meals potassium citrate 10 mEq Tbcr Commonly known as: UROCIT-K Take 1 tablet (10 mEq) by mouth 3 times a day with meals predniSONE 1 mg tablet Take 3 tablets (3 mg) by mouth 1 time per day TUMS 500 MG chewable tablet Generic drug: calcium carbonate * This list has 2 medication(s) that are the same as other medications prescribed for you. Read thedirections carefully, and ask your doctor or other care provider to review them with you. STOP taking these medications furosemide 20 mg tablet Commonly known as: LASIX HYDROcodone-acetaminophen 5-325 mg tablet Commonly known as: NORCO miconazole 2 % Crea Commonly known as: MONISTAT-DERM triamcinolone acetonide 0.1 % cream Commonly known as: KENALOG,ARISTOCORT ZZZQUIL PO Where to Get Your Medications Information about where to get these medications is not yet available Ask your nurse or doctor about these medications apixaban 2.5 MG tablet oxyCODONE 5 mg tablet (immediate release) polyethylene glycol packet senna-docusate sodium 8.6-50 MG tablet Disposition and follow-up: Mr.Dale Ruben Patino was discharged from [facility] in good condition. At the hospital follow up visit please address: 1. Follow up with GI and orthopedics as scheduled. 2. Labs / imaging needed at time of follow-up: none 3. Pending labs on discharge: Follow-up Appointments: Contact information for follow-up Genaro Lee PA Specialty: ANKIT - Orthopedic [facility] [address] [facility] [address] Next Steps: Follow up on 03/10/2019 Instructions: Friday at 2:00 PM Genaro Vallecillo MD Specialty: Orthopedic Surgery [facility] [address] [facility] [address] Next Steps: Follow up on 04/05/2019 Instructions: Friday at 9:00 AM [employer], [employer] [address] [facility] [address] Next Steps: Follow up , Friday at 2:00 PM Friday at 9:00 AM Hospital Course by problem list: 1. Hx of psoriatic arthritis: s/p right TKA by Dr. Vallecillo. Progressing well with therapy but they are still recommending low intensity since he does live alone out of town. Able to have a BM after his procedure and pain is well controlled with oral medication. Plan for swing bed today. 2. Dysphagia with food impaction: hx of impaction and noted that he felt like he had "something stuck" Transferred to [facility] and GI has seen and took him to EGD which noted a large amount of food in the stomach and distal esophagus. This was removed and he is symptomatically better. Tolerating CLD andwill change to a full liquid diet tomorrow. Likely discharge on full liquids for 2 weeks then advance to soft diet. 3. Hypertension: hx of hypertension and is on amlodipine at home. Continue. BP stable. 4. Hx of gastric bypass: He has a hx of gastric bypass surgery and take his vitamins at home. continue full liquid diet for 2 weeks then he can advance to soft diet. 5. Depression: continue zoloft. 6. CKD stage III: baseline creatinine appears to be 0.9-1.3. At his baseline during admission. 7. Diabetes mellitus type II: He has a hx of diet controlled diabetes mellitus type II. Monitor blood sugars during admission with SSI. 8. SERENA: continue CPAP therapy. Discharge Instructions: Discharge Instructions Post operative pain control Pain after an operation (post-op pain) is common and expected. These guidelines can help you stay ascomfortable as possible. Take medicines on time. Do not take more than prescribed. Take only the medicines that your healthcare provider tells you to take. Take pain medicines with some food to avoid an upset stomach. Dont drink alcohol while using pain medicines. Constipation Constipation is a common side effect of pain medicines. Constipation means you have bowel movementsfewer than three times per week, or strain to pass hard, dry stool. One of the best ways to help treat constipation is to increase your fiber intake. You can do this either through diet or by using fiber supplements. Fiber (in whole grains, fruits, and vegetables) addsbulk and absorbs water to soften the stool. This helps the stool pass through the colon more easily.When you increase your fiber intake, do it slowly to avoid side effects such as bloating. Also increase the amount of water that you drink. Eating more of the following foods can add fiber to your diet. Exercise helps improve the working of your colon which helps ease constipation. Your health care provider may suggest an [id number] stool softener, such as Senna or Colace tohelp ease your constipation. He or she may suggest the use of bulk-forming agents or laxatives. The use of laxatives, if used as directed, is common and safe. Follow directions carefully when using them. Preventing Blood Clots (Deep Vein Thrombosis) In the days and weeks after surgery, you have a higher chance of developing a deep vein thrombosis (DVT). This is a condition in which a blood clot or thrombus develops in a deep vein. They are most common in the leg. But, a DVT may develop in an arm, or another deep vein in the body. A piece of the clot, called an embolus, can separate from the vein and travel to the lungs. A blood clot in the lungsis called a pulmonary embolus (PE). This can cut off the flow of blood. It is a medical emergency and may cause . Deep vein thrombosis can occur even after you go home. Follow all instructions from your health careprovider. The following are some general guidelines about DVT prevention: Anticoagulant medication. If an anticoagulant was prescribed, make sure you follow all directionsabout taking it. Be sure you know what foods and medicines may interact. Also, ask your health care provider what to do if you forget to take a dose. Compression stockings. Your health care provider will tell you how often to wear and remove the stockings. Follow all instructions closely. Each time you remove your stockings, check your legs and feet for reddened areas or sores. If you see any changes, call your health care provider right away. Returning to activity. Follow all instructions about returning to activities. Be as active as youcan. This improves blood flow and helps prevent a clot from forming. When in bed or in a chair, continue with the ankle exercises you did in the hospital. Consultations: INTERNAL MEDICINE CONSULT GASTROENTEROLOGY CONSULT NUTRITION REFERRAL Admission HPI: Johnny Patino is admitted under the orthopedic service status post right total knee arthroplasty on 02/26/2019. Spinal anesthesia with adductor canal block. Estimated blood loss 25 mL. Internal medicine consultation requested to assist with co-managment postoperatively. Currentlyhe denies any pain, chest pain, shortness of breath, nausea, headache, or numbness or tingling. He does have a reddened area to his upper buttocks. Patient has had right knee pain for years. Preoperatively he rates his pain 8/ 10. He has difficulty with ambulation and activities of daily living. He has tried [id number] analgesics and steroid injections in the past. He was using assistive device at home. Preop labs reviewed from 02/09/2019: Hemoglobin 11.2, creatinine 0.94, GFR 80 Reviewed from 11/28/2018:Sinus rhythm with Premature supraventricular complexes , Right bundle branch block , Left anterior fascicular block, Bifascicular block Procedures Performed: Xray Knee 1-2v - Rt Result Date: 02/26/2019 Patient Name: JOHNNY PATINO Date of : 1950 Procedure: XRAY KNEE 1-2 VIEWS RT Date of Service: 02/26/2019 EXAM: XRAY KNEE 1-2 VIEWS RT INDICATION: tka ADDITIONAL INDICATION: None. COMPARISON(S): None FINDINGS: Total arthroplasty of the right knee. Hardware is stable in alignment and configuration without abnormal lucency at cement hardware interface. IMPRESSION : 1. Normal appearance at baseline after arthroplasty procedure. Finalized by: Radha Murry MD on 02/26/2019 12:52 PM RECORDS CLERK Patient/Procedure Information: [facility] MRN/LORENZO: [id number] Order Number: [id number] Accession Number: [id number] Ordering Provider: GENARO LEE Authorizing Provider: GENARO LEE Discharge Vitals: BP 155/69 Pulse 56 Temp 98.5 F (36.9 C) Resp 15 Ht 1.613 m (5' 3.5") Wt 92 kg (202 lb 13.2 oz) SpO2 94% BMI 35.36 kg/m2|| Vitals reviewed. General: resting in bed, NAD HEENT: PERRL, EOMI, no scleral icterus Cardiac: RRR, no rubs, murmurs or gallops Pulm: clear to auscultation bilaterally, no wheezes, rales, or rhonchi Abd: soft, nontender, nondistended, BS present Ext: warm and well perfused, right knee dressing CDI. Brisk cap refill with intact PT and DP pulsesbilaterally. Neuro: alert and oriented X3, cranial nerves II-XII grossly intact, strength and sensation to light touch equal in bilateral upper and lower extremities Discharge Labs: Labs (Last day) 03/02/19453 - 03/02/19453 CHEMISTRY 03/02/1945303/02/1945303/02/19453 CHEMISTRY Glucose 70-100 (mg/dL) 128 Sodium 135-145 (meq/L) 140 Potassium 3.5-5.3 (meq/L) 4.2 Chloride 99-110 (meq/L) 103 CO2 20-29 (meq/L) 30 Anion Gap with K 6-20 (meq/L) 11 BUN 6-22 (mg/dL) 14 Creatinine 0.80-1.30 (mg/dL) 0.85 BUN/Creatinine Ratio 10.0-25.0 16.5 Calcium 8.5-10.5 (mg/dL) 8.3 Phosphorus 2.5-4.5 (mg/dL) 1.5 Magnesium 1.8-2.4 (mg/dL) 2.0 eGFR >=60 (mL/min/1.73m2) >90 eGFR Non- >=60 (mL/min/1.73m2) 90 03/02/19453 - 03/02/19453 OTHER 03/02/19453 OTHER Age (Years) 69 Signed: Oscar Hernández MD [facility] [employer] system administrator [facility] [employer] Pager: [phone] Time Spent on Discharge: 35 minutes Services Ordered on Discharge: none documented in this encounter Discharge Instructions Amparo Francis RN - 02/27/2019Post operative pain control Pain after an operation (post-op pain) is common and expected. These guidelines can help you stay ascomfortable as possible. Take medicines on time. Do not take more than prescribed. Take only the medicines that your healthcare provider tells you to take. Take pain medicines with some food to avoid an upset stomach. Dont drink alcohol while using pain medicines. Constipation Constipation is a common side effect of pain medicines. Constipation means you have bowel movementsfewer than three times per week, or strain to pass hard, dry stool. One of the best ways to help treat constipation is to increase your fiber intake. You can do this either through diet or by using fiber supplements. Fiber (in whole grains, fruits, and vegetables) addsbulk and absorbs water to soften the stool. This helps the stool pass through the colon more easily.When you increase your fiber intake, do it slowly to avoid side effects such as bloating. Also increase the amount of water that you drink. Eating more of the following foods can add fiber to your diet. Exercise helps improve the working of your colon which helps ease constipation. Your health care provider may suggest an wkco-pje-pczjpvw stool softener, such as Senna or Colace tohelp ease your constipation. He or she may suggest the use of bulk-forming agents or laxatives. The use of laxatives, if used as directed, is common and safe. Follow directions carefully when using them. Preventing Blood Clots (Deep Vein Thrombosis) In the days and weeks after surgery, you have a higher chance of developing a deep vein thrombosis (DVT). This is a condition in which a blood clot or thrombus develops in a deep vein. They are most common in the leg. But, a DVT may develop in an arm, or another deep vein in the body. A piece of the clot, called an embolus, can separate from the vein and travel to the lungs. A blood clot in the lungsis called a pulmonary embolus (PE). This can cut off the flow of blood. It is a medical emergency and may cause . Deep vein thrombosis can occur even after you go home. Follow all instructions from your health careprovider. The following are some general guidelines about DVT prevention: Anticoagulant medication. If an anticoagulant was prescribed, make sure you follow all directionsabout taking it. Be sure you know what foods and medicines may interact. Also, ask your health care provider what to do if you forget to take a dose. Compression stockings. Your health care provider will tell you how often to wear and remove the stockings. Follow all instructions closely. Each time you remove your stockings, check your legs and feet for reddened areas or sores. If you see any changes, call your health care provider right away. Returning to activity. Follow all instructions about returning to activities. Be as active as youcan. This improves blood flow and helps prevent a clot from forming. When in bed or in a chair, continue with the ankle exercises you did in the hospital. documented in this encounter Medications at Time of Discharge Medication Sig Dispensed Refills Start Date End Date apixaban (ELIQUIS) 2.5 MG Take 1 tablet (2.5 0 03/02/2019 03/12/2019 tabletIndications: mg) by mouth 2 Prophylaxis of DVT in times a day for 10 Orthopedic Surgery days Indications: Prophylaxis of Deep Vein Thrombosis in Orthopedic Surgery polyethylene glycol Take 1 packet by 0 03/03/2019 (MIRALAX) mouth 1 time per packetIndications: S/P day Dissolve in 4 total knee arthroplasty, to 8 ounces of right water, juice, soda, coffee, tea. senna-docusate sodium Take 1 tablet by 0 03/02/2019 (SENOKOT-S;PERICOLACE) mouth 2 times a day 8.6-50 MG tabletIndications: S/P total knee arthroplasty, right oxyCODONE (OXY-IR) 5 mg Take 1 tab for 0 03/02/2019 tablet (immediate moderate pain and 2 release)Indications: S/P tabs for severe total knee arthroplasty, pain every 4 hours right as needed by mouth. docusate sodium (COLACE) Take 1 capsule (100 0 03/02/2019 100 mg capsule mg) by mouth 1 time a day as needed for constipation calcium carbonate (TUMS) Take 1 tablet (500 90 tablet 0 03/02/2019 500 MG chewable tablet mg) by mouth 3 times a day with meals Calcium supplement betamethasone dipropionate Apply topically 2 0 augmented (DIPROLENE AF) times a day as 0.05 % CREA needed for rash (on elbows and hands) Contour NEXT test 2 times a day 200 each 4 02/09/2019 stripIndications: Type 2 diabetes mellitus without complication, without long-term current use of insulin (HCC) predniSONE 1 mg Take 3 tablets (3 270 tablet 1 02/08/2019 tabletIndications: mg) by mouth 1 time Psoriatic arthritis (HCC), per day Psoriasis bariatric advantage Take 1 tablet by 180 tablet 4 01/22/2019 04/22/2019 advanced multi EA chewable mouth 2 times a day multivitaminIndications: S/P gastric bypass oxybutynin (DITROPAN-XL) Take 1 tablet (15 90 tablet 3 01/14/2019 15 mg SR tablet (24 mg) by mouth 1 time hr)Indications: Lower per day urinary tract symptoms (LUTS), Urge incontinence of urine allopurinol (ZYLOPRIM) 100 Take 1 tablet (100 90 tablet 4 01/12/201901/16 mg tabletIndications: mg) by mouth 1 time Idiopathic gout, per day unspecified chronicity, unspecified site amLODIPine (NORVASC) 2.5 Take 1 tablet (2.5 90 tablet 4 01/12/20192019 mg tabletIndications: mg) by mouth 1 time Essential hypertension per day calcitriol (ROCALTROL) Take 1 capsule 90 capsule 4 01/12/2019 01/17/2020 0.25 mcg (0.25 mcg) by mouth capsuleIndications: Every other day Secondary hyperparathyroidism (HCC) clotrimazole (LOTRIMIN-AF) Apply to affected 1 Tube 4 01/12/20192019 1 % creamIndications: area 2 times a day Tinea cruris For groin rash gabapentin (NEURONTIN) 300 Take 1 capsule (300 30 capsule 0 01/12/2019 mg capsuleIndications: S/P mg) by mouth 1 time cervical spinal fusion per day Lancets (MICROLET) 1 each 2 times a 100 each 4 01/12/2019 01/17/2020 MISCIndications: Type 2 day Use to test diabetes mellitus without blood sugars one complication, without time a day Not on long-term current use of insulin ICD E11.9 insulin (HCC) potassium citrate Take 1 tablet (10 270 tablet 4 01/12/2019 01/17/2020 (UROCIT-K) 10 mEq mEq) by mouth 3 TBCRIndications: Kidney times a day with stones meals sertraline (ZOLOFT) 50 mg Take 1 tablet (50 90 tablet 4 01/12/20192019 tabletIndications: mg) by mouth 1 time Dysthymia per day acetaminophen (TYLENOL) Take 2 tablets 0 09/17/2018 500 mg tablet (1,000 mg) by mouth every 6 hours as needed for headache pantoprazole (PROTONIX) 20 Take 1 tablet (20 90 tablet 3 09/17/2018 mg enteric coated mg) by mouth 2 tabletIndications: GI times a day before bleed meals Blood Glucose Monitoring 1 each 2 times a 20 each 4 12/01/2017 Suppl (CONTOUR NEXT day MONITOR) w/Device KITIndications: Type 2 diabetes mellitus without complication, without long-term current use of insulin ([facility]) blood glucose test strip 1 time per day Use 100 each 4 01/06/2017 (Space [employer]pe CONTOUR NEXT) to test blood sugar STRPIndications: Type 2 one time a day at diabetes mellitus without alternating times. complication, without Not on insulin ICD long-term current use of E11.9 insulin (HCC) vitamin D, Take 1,000 Units by 0 cholecalciferol, (D 1000) mouth 1 time per 1000 UNITS CAPS day. documented as of this encounter Progress Notes José Miguel Mcclain PA - 03/02/2019 10:15 AM CST ORTHOPAEDIC POST-OPERATIVE PROGRESS NOTE 03/02/2019 POD # 4 Right total knee arthroplasty Patient of Dr. Vallecillo S: Johnny Patino is a 69yr male. Patient currently reports of minimal pain while at rest. Moderate pain with activities, tolerable. He has been working with PT. Ambulated 400' yesterday. Tolerating diet. Reports BM, urinating without difficulty. Denies chest pain, shortness of breath, nausea, vomiting and abdominal pain. Denies numbness and tingling and calf pain. O: Temp Readings from Last 1 Encounters: 03/02/19 97.7 F (36.5 C) BP Readings from Last 1 Encounters: 03/02/19 129/71 Pulse Readings from Last 1 Encounters: 03/02/19 56 Gen: Appears comfortable sitting in the chair with legs elevated. No acute distress. Alert and oriented. Incision: Scant bloody drainage mid-incision. Dressing C/D/I. right KNEE: No significant tenderness to palpation. Compartments are compressing. Warm, well perfused. Sensation grossly intact distally over the SPN, DPN and sural nerve distribution. Motor grossly intact, appropriate knee range of motion post-operative, able to DF/PF ankle, flex/extend toes. DP and PT pulses are palpable. No calf tenderness to palpation bilaterally. Lab Results Component Value Date WBC 9.4 03/01/2019 NUCRBC 0 03/01/2019 RBC 2.95 (L) 03/01/2019 HEMOGLOBIN 9.4 (L) 03/01/2019 HEMATOCRIT 29.4 (L) 03/01/2019 MCV 99.7 (H) 03/01/2019 MCH 31.9 03/01/2019 MCHC 32.0 03/01/2019 RDW 15.1 (H) 05/28/2013 PLTCOUNT 144 03/01/2019 NEUTROPCT 83.5 03/01/2019 BANDPCT 16 (H) 05/27/2013 LYMPHSPCT 7.4 03/01/2019 MONOSPCT 7.4 03/01/2019 EOSPCT 0.1 03/01/2019 BASOPHILPCT 0.2 03/01/2019 Lab Results Component Value Date INR 1.2 (L) 09/14/2018 A/P: 1. s/p Right total knee arthroplasty: DVT prophylaxis: Patient restarted on eliquis, 2.5mg BID now that can tolerate orals. Lovenox was discontinued. Pain control: Continue current regimen. Wound care: Change mepilex dressing today. Mepilex dressing may remain in place for up to 7 days.Change sooner as needed. PT/OT: continue; WBAT, total knee precautions Activity: as tolerated; Disposition/planning: continue cares; Per Ortho, clear for discharge to appropriate setting when available and medically stable. Follow up: 2 weeks with [facility] and [address] Vallecillo 2. Acute Blood loss Anemia: Expected José Miguel Mcclain Pa-C David Medrano MD - 03/01/2019 11:10 PM [facility]ST [facility] Mr.Dale Ruben Patino is a 69yr man who we were consulted for medical management. Assessment/Plan: 1. Hx of psoriatic arthritis: s/p right TKA by Dr. Vallecillo. Progressing well with therapy but they are still recommending low intensity since he does live alone out of town. Likely placement tomorrow.Able to have a BM after his procedure and pain is well controlled with oral medication. 2. Dysphagia with food impaction: hx of impaction and noted that he felt like he had "something stuck" Transferred to [facility] and GI has seen and took him to EGD which noted a large amount of food in the stomach and distal esophagus. This was removed and he is symptomatically better. Tolerating CLD andwill change to a full liquid diet tomorrow. Likely discharge on full liquids for 2 weeks then advance to soft diet. 3. Hypertension: hx of hypertension and is on amlodipine at home. Continue. BP stable. 4. Hx of gastric bypass: He has a hx of gastric bypass surgery and take his vitamins at home. Will continue during admission and will monitor diet advancement after his EGD. 5. Depression: continue zoloft. 6. CKD stage III: baseline creatinine appears to be 0.9-1.3. At his baseline during admission. 7. Diabetes mellitus type II: He has a hx of diet controlled diabetes mellitus type II. Monitor blood sugars during admission with SSI. 8. SERENA: continue CPAP therapy. 9. VTE: Eliquis 10. Dispo: likely discharge to swing bed tomorrow. Subjective: Doing well. Denies nausea, vomiting, chest pain, SOB or cough. Objective: Vital signs in last 24 hours: Vitals: 03/01/19 0005 03/01/19 0713 03/01/19 1523 03/01/19 1922 BP: 146/71 120/75 126/86 113/68 Pulse: 91 74 82 87 Resp: 15 16 15 16 Temp: 97.8 F (36.6 C) 97.8 F (36.6 C) 97.8 F (36.6 C) SpO2: 92% 93% 96% 96% Weight: Height: Weight change: Intake/Output Summary (Last 24 hours) at 03/01/2019 2310 Last data filed at 03/01/2019 2147 Gross per 24 hour Intake 1470 ml Output 400 ml Net 1070 ml Vitals reviewed. General: resting in bed, NAD HEENT: PERRL, EOMI, no scleral icterus Cardiac: RRR, no rubs, murmurs or gallops Pulm: clear to auscultation bilaterally, no wheezes, rales, or rhonchi Abd: soft, nontender, nondistended, BS present Ext: warm and well perfused, right knee dressing CDI. Brisk cap refill with intact PT and DP pulsesbilaterally. Neuro: alert and oriented X3, cranial nerves II-XII grossly intact, strength and sensation to light touch equal in bilateral upper and lower extremities Lab Results: Basic Metabolic Panel: Recent Labs 02/27/1961103/01/19 0748 NA 141 142 POTASSIUM 4.4 3.9 CL 107 104 CO2 27 30* BUN 21 14 CREATSERUM 1.03 0.85 CA 8.5 8.2* MAGNESIUM -- 1.8 PHOSPHORUS -- 1.8* Recent Labs 02/27/19 0612 03/01/19 0748 GLUCOSE 158* 176* Liver Function Tests: Recent Labs 03/01/19 0748 ALBUMIN 3.3* CBC: Recent Labs 02/27/1912 03/01/19 0748 WBC -- 9.4 NEUTROABS -- 7.9 HEMOGLOBIN 9.6* 9.4* HEMATOCRIT -- 29.4* MCV -- 99.7* PLTCOUNT -- 144 Medications: I have reviewed his medications. Current Facility-Administered Medications Medication Dose Route Frequency [START ON 03/02/2019] apixaban (ELIQUIS) tablet 2.5 mg 2.5 mg Oral 2 times a day calcium carbonate (TUMS) chewable tablet 500 mg 500 mg Oral 4 times a day prn labetalol (NORMODYNE;TRANDATE) IV solution 10 mg 10 mg IV Every 6 hours prn pantoprazole (PROTONIX) for injection 40 mg vial 40 mg IV Daily allopurinol (ZYLOPRIM) tablet 100 mg 100 mg Oral Daily amLODIPine (NORVASC) tablet 2.5 mg 2.5 mg Oral Every evening calcitriol (ROCALTROL) capsule 0.25 mcg 0.25 mcg Oral Every other day calcium carbonate (TUMS) chewable tablet 500 mg 500 mg Oral 3 times a day with meals gabapentin (NEURONTIN) capsule 300 mg 300 mg Oral at bedtime oxybutynin (DITROPAN-XL) SR tablet (24 hr) 15 mg 15 mg Oral at bedtime potassium citrate (UROCIT-K) CR tablet 10 mEq 10 mEq Oral 3 times a day with meals predniSONE tablet 3 mg 3 mg Oral daily sertraline (ZOLOFT) tablet 50 mg 50 mg Oral at bedtime vitamin D3 (cholecalciferol) tablet 1,000 Units 1,000 Units Oral daily sodium chloride 0.9% flush (adult) 10 mL 10 mL IV 2 times a day and prn senna-docusate sodium (SENOKOT-S;PERICOLACE) tablet 1 tablet 1 tablet Oral 2 times a day polyethylene glycol (MIRALAX) packet 1 packet 1 packet Oral Daily magnesium hydroxide (MILK OF MAGNESIA) oral suspension 30 mL 30 mL Oral 2 times a day prn bisacodyl (DULCOLAX) enteric coated tablet 5 mg 5 mg Oral 2 times a day prn bisacodyl (DULCOLAX) suppository 10 mg 10 mg Rectal 1 time a day prn ondansetron (ZOFRAN) injection solution 4 mg 4 mg IV Every 4 hours prn benzocaine-menthol (CEPACOL w/ BENZOCAINE) lozenge 1 lozenge 1 lozenge Mouth/Throat Every 4 hours prn acetaminophen (TYLENOL) tablet 650 mg 650 mg Oral Every 6 hours traMADol (ULTRAM) tablet 100 mg 100 mg Oral Every 6 hours oxyCODONE (OXY-IR) tablet 5-10 mg 5-10 mg Oral Every 4 hours prn fentaNYL 100 mcg/2 mL preservative free injection solution 50 mcg 50 mcg IV Every 30 minutes prn hydrOXYzine pamoate (VISTARIL) capsule 25 mg 25 mg Oral Every 6 hours prn Oscar Hernández MD [facility] [employer] system administrator [employer] Pager: [phone] 12: 38 PM Sandra Mann PA - 03/01/2019 12:37 PM CST ORTHOPAEDIC POST OPERATIVE PROGRESS NOTE March 01, 2019 POD # 3 Right total knee arthroplasty Patient of Dr. Avel Rahman: Johnny Patino is a 69yr male recovering from surgery, denies CP, SOB, N/V , Fever or Chills, numbness/tingling. Ambulated in the live several times today. Pain: no pain at rest, mild pain with ambulation but improving overall O: Temp Readings from Last 1 Encounters: 03/01/19 97.8 F (36.6 C) BP Readings from Last 1 Encounters: 03/01/19 120/75 Pulse Readings from Last 1 Encounters: 03/01/19 74 Gen: Patient sitting up in the chair, legs elevated, alert and orientated, no apparent distress right LEG: Dressing CDI. Toes warm, well perfused. Distal NVI. Homans negative, no calf pain.Compartments soft. EHL/ PF/DF intact. Lab Results Component Value Date WBC 9.4 03/01/2019 NUCRBC 0 03/01/2019 RBC 2.95 (L) 03/01/2019 HEMOGLOBIN 9.4 (L) 03/01/2019 HEMATOCRIT 29.4 (L) 03/01/2019 MCV 99.7 (H) 03/01/2019 MCH 31.9 03/01/2019 MCHC 32.0 03/01/2019 RDW 15.1 (H) 05/28/2013 PLTCOUNT 144 03/01/2019 NEUTROPCT 83.5 03/01/2019 BANDPCT 16 (H) 05/27/2013 LYMPHSPCT 7.4 03/01/2019 MONOSPCT 7.4 03/01/2019 EOSPCT 0.1 03/01/2019 BASOPHILPCT 0.2 03/01/2019 Lab Results Component Value Date INR 1.2 (L) 09/14/2018 A/P: 1. s/p Right total knee arthroplasty: DVT prophylaxis: eliquis Pain control: adequate, continue same Wound care: Change prior to d/c PT/OT: continue; WBAT with TKA precautions Activity: as tolerated; Disposition/planning: continue cares; Per Ortho, clear for discharge to appropriate setting when available and medically stable. Follow up: 2 weeks with [facility] and [address] Vallecillo 2. Acute Blood loss Anemia: Expected osé Miguel Mcclain PA - 02/28/2019 9:27 AM CST ORTHOPAEDIC POST-OPERATIVE PROGRESS NOTE 02/28/2019 POD # 2 Right total knee arthroplasty Patient of Dr. Vallecillo S: Johnny Patino is a 69yr male. Patient currently reports of minimal pain at rest in the right knee. Moderate pain with movement. Main concern is that still feels like a piece of melon is stuck distal portion of the esophagus. Unable to tolerate oral medications or eat at this time. States that this has happened before. Reports urinating without difficulty and passing flatulence. Denies bowel movement. Reports nausea, vomiting. Unable to dislodge the piece of food. Denies any new chest pain, difficulty breathing, and abdominal pain. Denies numbness/tingling and calf pain. O: Temp Readings from Last 1 Encounters: 02/28/19 99.3 F (37.4 C) BP Readings from Last 1 Encounters: 02/28/19 175/98 Pulse Readings from Last 1 Encounters: 02/28/19 104 Gen: Lying in bed with head slightly elevated. Does appear to be in mild distress. Alert and oriented. Incision: No strikethrough drainage. Dressing C/D/I. right KNEE: Diffuse tenderness to palpation of the right knee. No significant tenderness of the thigh and lower leg. Compartments are compressible. Warm, well perfused. Sensation is grossly intact to light touch L3 to S1. Motor is grossly intact distally, able to dorsiflex/plantarflex ankleand flex/extension toes. DP and PT pulses are palpable. No calf tenderness to palpation bilaterally. Lab Results Component Value Date WBC 6.1 02/09/2019 NUCRBC 0 09/17/2018 RBC 3.62 (L) 02/09/2019 HEMOGLOBIN 9.6 (L) 02/27/2019 HEMATOCRIT 34.9 (L) 02/09/2019 MCV 96.4 02/09/2019 MCH 30.9 02/09/2019 MCHC 32.1 02/09/2019 RDW 15.1 (H) 05/28/2013 PLTCOUNT 165 02/09/2019 NEUTROPCT 75.4 02/09/2019 BANDPCT 16 (H) 05/27/2013 LYMPHSPCT 14.6 02/09/2019 MONOSPCT 8.4 02/09/2019 EOSPCT 1.1 02/09/2019 BASOPHILPCT 0.5 02/09/2019 Lab Results Component Value Date INR 1.2 (L) 09/14/2018 A/P: 1. s/p Right total knee arthroplasty: DVT prophylaxis: Will switch to Lovenox 40 mg daily until patient can uptake oral medications. Once patient can tolerate oral meds, then will transition back to eliquis. Pain control: Continue current regimen Wound care: Change dressing today. Replaced with Mepilex. Mepilex dressing may remain in place for up to 7 days. Change sooner as needed. PT/OT: continue; weightbearing as tolerated with TKA precautions Activity: as tolerated; Disposition/planning: continue cares; discussed with Dr. Valentin, will plan to discuss with gastroenterology. Follow up: 2 weeks with [facility] and [address] Vallecillo 2. Acute Blood loss Anemia: Expected oJsé Miguel Mcclain Pa-C Brian Chu MD - 02/28/2019 1:00 AM [facility] PATIENT NAME: JOHNNY PATINO DATE OF SERVICE: 02/28/2019 LORENZO: [id number] Mr. Johnny Patino is a 69-year-old male admitted on 02/26/2019 for elective right total knee arthroplasty. IMPRESSION AND PLAN: 1. Dysphagia secondary to food impaction. The patient feels like the food is impacted in the loweresophagus or in the stomach. Had a prior history of gastric bypass and had a food impaction in the past and required EGD. Discussed with the retirement sales consultant and the patient will be transferred to [facility] for possible EGD and further management. In the meantime, we will keep him n.p.o. on IV fluids. We will see what the EGD finding shows and proceed further. 2. Osteoarthritis of the right knee status post total knee arthroplasty. Currently doing well. The orthopedics is following. We will continue with the therapies and current pain regimen. 3. Hypertension. The blood pressures are elevated secondary to patient is not taking his blood pressure medications. We will put him on IV metoprolol scheduled until the patient is able to start taking the blood pressure medications. Otherwise, takes amlodipine at home. 4. 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 We will see what theEGD shows. Otherwise, continue with the Protonix. 5. Psoriatic arthritis. Continue with the prednisone. Has appointment to follow up with rheumatology as outpatient. 6. DVT and GI prophylaxis with Lovenox and Protonix. 7. History of depression, on Zoloft. 8. CKD, stage 3. Renal function is stable. SUBJECTIVE: Patient is complaining of food stuck in the stomach in the lower esophagus or stomach.Not able to eat or swallow anything from yesterday evening. Otherwise, vomited once a small amount of food particles. Otherwise, complaining of more pain in the knee as well because the patient did not take any pain medications. REVIEW OF SYSTEMS: GENERAL: Generalized weakness. No fevers or chills. RESPIRATORY: No cough. CARDIOVASCULAR: No chest pain. GI: As above. EXTREMITIES: As above. VITAL SIGNS: Reviewed. MEDICATIONS: Reviewed and adjusted. LABS AND IMAGING STUDIES: Reviewed. PHYSICAL EXAMINATION: GENERAL: Elderly male is seen lying comfortable in the bed, not in any obvious distress. CARDIOVASCULAR: S1, S2 heard. No murmurs or gallops. LUNGS: Air entry is present on both sides. No wheezing or creps. ABDOMEN: Soft, flat. Mild tenderness is noted in the epigastric area. No guarding or rigidity. HAIRSPRING FABRICATION SUPERVISOR: Awake, alert, oriented to time, place, person. EXTREMITIES: Right knee dressings are dry and intact. Pulses are palpable. Moving toes well. The total time spent on taking care of the patient is more than 35 minutes with more than 50% spent on coordination of the care. Brian Valentin MD Receipt: [id number] Trans ID: [id number]/[facility] RECORDS CLERK CST Genaro Fry MD - 8:06 AM CST }Ortho Progress Note Johnny Patino is a 69yr old male 1 Day Post-Op, Status Post Procedure(s): RIGHT TOTAL KNEE ARTHROPLASTY. BP 118/69 | Pulse 75 | Temp 97.9 F (36.6 C) | Resp 16 | Ht 1.613 m (5' 3.5") | Wt 92 kg (202 lb 13.2 oz) | SpO2 95% | BMI 35.36 kg/m Lab Results Component Value Date HEMOGLOBIN 9.6 (L) 02/27/2019 Patient doing ok, complains of moderate pain. The patient denies nausea. The dressing/incision is clean Compartments soft and non-tender. Distal NV intact. ROM in PT:8-82. Ambulated 60 ft. Plan: Continue cares. Continue PT/OT and mobilization. Plan d/c when ready. Genaro Vallecillo MD Brian Chu MD - 02/27/2019 1:00 AM [facility] PATIENT NAME: JOHNNY PATINO DATE OF SERVICE: 02/27/2019 LORENZO: [id number] Mr. Johnny Patino is a 69-year-old male admitted on 02/26/2019 for elective right total knee arthroplasty. IMPRESSION AND PLAN: 1. Osteoarthritis, right knee status post right total knee arthroplasty. The patient is still having some issues with mobility. The physical therapy and occupational therapy have evaluated and recommended fpc home. We will continue with the current pain management. Orthopedics is following. 2. Hypertension. Blood pressures are well controlled. Continue with amlodipine. 3. History of psoriasis and arthritis, looking stable. Continue with prednisone 3 mg daily. He has been following up with rheumatology as outpatient. 4. DVT prophylaxis with Eliquis. 5. History of gastric bypass surgery, looking stable. 6. CKD, stage 3. The patient's renal function is stable. We will continue to monitor. 7. Diabetes mellitus, type 2, diet controlled. Continue with diabetic diet. 8. History of depression, looking stable. Continue with Zoloft. 9. Obstructive sleep apnea on CPAP therapy. SUBJECTIVE: Patient is still complaining of some pain in the knee and not able to ambulate well enough to go home. Otherwise, feels like food is stuck in his throat. No other acute events happened overnight. REVIEW OF SYSTEMS: GENERAL: Generalized weakness. No fevers or chills. RESPIRATORY: No cough. CARDIOVASCULAR: No chest pain. GASTROINTESTINAL: No nausea or vomiting. EXTREMITIES: No new leg swelling. VITAL SIGNS: Reviewed. MEDICATIONS: Reviewed and adjusted. LABS AND IMAGING STUDIES: Reviewed. PHYSICAL EXAMINATION: GENERAL: A middle-aged elderly male is seen lying comfortable in the bed, not in any obvious distress. CARDIOVASCULAR: S1, S2 heard. No murmurs or gallops. LUNGS: Air entry is present on both sides. No wheezing or creps. ABDOMEN: Soft, flat, nontender. No organomegaly. HAIRSPRING FABRICATION SUPERVISOR: Awake, alert, oriented to time, place, person. No focal deficits. EXTREMITIES: The dressings on the right knee are dry and intact. Trace pedal edema is noted. DERMATOLOGICAL: Warm and moist skin noted. Brian Valentin MD Receipt: [id number] Trans ID: [id number]/[facility] RECORDS CLERK CST alli Gallego, PHARM D - 02/26/2019 8:51 AM CST 02/26/2019 8:51 AM -- Patient was seen by the pharmacy med reconciliation team and HOME MEDICATIONS have been reconciled and updated to match the patient's home usage. Prior to Admission Medications Prescriptions Last Dose Informant Patient Reported? Taking? Blood Glucose Monitoring Suppl (CONTOUR NEXT MONITOR) w/Device KIT Unknown at Unknown time Self No Yes Si each 2 times a day Contour NEXT test strip Unknown at Unknown time Self No Yes Si times a day HYDROcodone-acetaminophen (NORCO) 5-325 mg tablet 02/26/2019 at 0400 Self No Yes Sig: TAKE 1 TABLET BY MOUTH EVERY 12 HOURS NEEDED FOR MODERATE PAIN OR SEVERE PAIN Patient taking differently: Take 1 tablet by mouth Every 12 hours as needed for moderate pain or severe pain Lancets (MICROLET) MISC Unknown at Unknown time Self No Yes Si each 2 times a day Use to test blood sugars one time a day Not on insulin ICD E11.9 acetaminophen (TYLENOL) 500 mg tablet 02/25/2019 at PM Self Yes Yes Sig: Take 2 tablets (1,000 mg) by mouth every 6 hours as needed for headache allopurinol (ZYLOPRIM) 100 mg tablet 02/26/2019 at 0400 Self No Yes Sig: Take 1 tablet (100 mg) by mouth 1 time per day Patient taking differently: Take 100 mg by mouth every night at bedtime amLODIPine (NORVASC) 2.5 mg tablet 02/25/2019 at PM Self No Yes Sig: Take 1 tablet (2.5 mg) by mouth 1 time per day Patient taking differently: Take 2.5 mg by mouth 1 time a day in the evening bariatric advantage advanced multi EA chewable multivitamin 02/23/2019 at PM Self No Yes Sig: Take 1 tablet by mouth 2 times a day betamethasone dipropionate augmented (DIPROLENE AF) 0.05 % CREA Past Week at Unknown time Self Yes Yes Sig: Apply topically 2 times a day as needed for rash (on elbows and hands) blood glucose test strip (CHUNG CONTOUR NEXT) STRP Unknown at Unknown time Self No Yes Si time per day Use to test blood sugar one time a day at alternating times. Not on insulin ICD E11.9 calcitriol (ROCALTROL) 0.25 mcg capsule 02/23/2019 at AM Self No Yes Sig: Take 1 capsule (0.25 mcg) by mouth Every other day calcium carbonate (TUMS) 500 MG chewable tablet 02/23/2019 at PM Self Yes Yes Sig: Take 1 tablet by mouth 3 times a day with meals. clotrimazole (LOTRIMIN-AF) 1 % cream Past Week at Unknown time Self No Yes Sig: Apply to affected area 2 times a day For groin rash diphenhydrAMINE HCl, Sleep, (ZZZQUIL PO) 02/25/2019 at HS Self Yes Yes Sig: Take 50 mg by mouth at bedtime as needed docusate sodium (COLACE) 100 mg capsule 02/25/2019 at Unknown time Self Yes Yes Sig: Take 100 mg by mouth 1 time a day as needed furosemide (LASIX) 20 mg tablet Past month at Unknown time Self No Yes Sig: Take 1 tablet (20 mg) by mouth 1 time a day as needed (swelling) gabapentin (NEURONTIN) 300 mg capsule 02/25/2019 at HS Self No Yes Sig: Take 1 capsule (300 mg) by mouth 1 time per day Patient taking differently: Take 300 mg by mouth every night at bedtime miconazole (MONISTAT-DERM) 2 % CREA Past month at Unknown time Self No Yes Sig: Apply 1 application topically 2 times a day oxybutynin (DITROPAN-XL) 15 mg SR tablet (24 hr) 02/25/2019 at HS Self No Yes Sig: Take 1 tablet (15 mg) by mouth 1 time per day Patient taking differently: Take 15 mg by mouth every night at bedtime pantoprazole (PROTONIX) 20 mg enteric coated tablet 02/26/2019 at 0400 Self No Yes Sig: Take 1 tablet (20 mg) by mouth 2 times a day before meals potassium citrate (UROCIT-K) 10 mEq TBCR 02/26/2019 at 0400 Self No Yes Sig: Take 1 tablet (10 mEq) by mouth 3 times a day with meals predniSONE 1 mg tablet 02/26/2019 at 0400 Self No Yes Sig: Take 3 tablets (3 mg) by mouth 1 time per day sertraline (ZOLOFT) 50 mg tablet 02/25/2019 at HS Self No Yes Sig: Take 1 tablet (50 mg) by mouth 1 time per day Patient taking differently: Take 50 mg by mouth every night at bedtime triamcinolone acetonide (KENALOG,ARISTOCORT) 0.1 % cream Past Week at Unknown time Self Yes Yes Sig: Apply topically 2 times a day vitamin D, cholecalciferol, (D 1000) 1000 UNITS CAPS 02/23/2019 at AM Self Yes Yes Sig: Take 1,000 Units by mouth 1 time per day. Facility-Administered Medications: None Calli Gallego, PharmD documented in this encounter Plan of Treatment Date Type Specialty Care Team Description 03/10/2019 Office Visit Orthopedics Genaro Lee PA [address] [place] [address] 04/05/2019 Office Visit Orthopedics Genaro Vallecillo MD [address] [place] [address] [phone] 04/20/2019 Office Visit Urology Rigo Son MD [address] [place] [address] [phone] 07/16/2019 Office Visit Internal Medicine Tommie Ledesma MD [address] [place] [id number] 01/14/2020 Office Visit Internal Medicine Tommie Ledesma MD [address] [place] [address] [phone] Name Type Priority Associated Order Schedule Diagnoses ESOPHAGOGASTRODUODENOSCOPY Procedures Routine Once for 1 Occurrences starting 02/28/2019 until 02/28/2019 Name Type Priority Associated Diagnoses Order Schedule CLINIC REFERRAL Referral Routine History of gastric Ordered: 03/02/2019 GASTROENTEROLOGY ONE CHART bypass documented as of this encounter Goals Goal Patient Goal Associated Recent Patient-Stated? Author Type Problems Progress Blood Pressure < Blood 155/69 No Radha, 140/90 Pressure Zahraa Lovelace LPN Care Coordination General Marika aRmirez RN Note: 01/12/19 Test blood sugars twice daily LIFESTYLE - CHECK BLOOD Lifestyle On track (02/09/2019) No Yocasta Torres RN, SUGAR TWO TO THREE TIMES CDE PER DAY documented as of this encounter Implants Implanted Type Area Jazz Singer Device Shelf Model / Identifier Expiration Serial / Date Lot Putty Signify 2.5cc N 8112.0002s Ea - [id number] Bone/Tissue/ N/A: [employer] 08/11/2016 8112.0002S / Implanted: Qty: 1 on 06/23/2015 by Juan Pablo Rordiguez MD at [facility] Allograft CERVICAL / SPINE [id number] Putty Signify 5cc N 8112.0005s Ea - [id number] Bone/Tissue/ N/A: [employer] 12/11/2016 8112.0005S / Implanted: Qty: 1 on 06/23/2015 by Juan Pablo Rodriguez MD at [facility] Allograft CERVICAL / SPINE [id number] Spacer Colonial Xl [id number] N 365.708 Ea - [id number] Neurology N/A: [employer] 365.708 / Implanted: Qty: 1 on 06/23/2015 by Juan Pablo Rodriguez MD at [facility] CERVICAL / SPINE Spacer Colonial Xl [id number] N 365.707 Ea - [id number] Neurology N/A: [employer] 365.707 / Implanted: Qty: 3 on 06/23/2015 by Juan Pablo Rodriguez MD at [facility] CERVICAL / SPINE Screw Occipital Gm 4.0x14mm N 110.814 Ea - [id number] Neurology N/A: [employer] 110.814 / Implanted: Qty: 10 on 06/23/2015 by Juan Pablo Rodriguez MD at [facility] CERVICAL / SPINE Plate Assure 4lvl Gm 76mm N 110.476 Ea - [id number] Neurology N/A: [employer] 110.476 / Implanted: Qty: 1 on 06/23/2015 by Juan Pablo Rodriguez MD at [facility] CERVICAL / SPINE Hip Shell Contm Uni Hl [id number] N 57 Ea - Sn/A Total Jt Hip Right: HIP CLAUDIO 03/16/202313-0021-714-00 / Implanted: Qty: 1 on 05/17/2013 by Porter Mcfadden MD at [facility] N/A / [id number] Hip Dome Hl Plug Zm N [id number] Ea - Sn/A Total Jt Hip Right: HIP CLAUDIO 04/16/202385-5160-191 / Implanted: Qty: 1 on 05/17/2013 by Porter Mcfadden MD at [facility] N/A / [id number] Hip Lnr Vit E Neut Zm Ii 36mm N 09-8673-993-36 Ea - Sn/A Total Jt Hip Right: HIP CLAUDIO 02/14/201892-9911-709-36 / Implanted: Qty: 1 on 05/17/2013 by Porter Mcfadden MD at [facility] N/A / [id number] Hip Stem M/L Taper Ext Sz13.5 N Ea - Sn/A Total Jt Hip Right: HIP CLAUDIO 02/14/202390-0954-599-20 / Implanted: Qty: 1 on 05/17/2013 by Porter Mcfadden MD at [facility] N/A / [id number] Hip Fem Head Zm 36/3.5 Taper N 42-4080-933- Ea - Sn/A Total Jt Hip Right: HIP CLAUDIO 10/14/202232-0467-689- / Implanted: Qty: 1 on 05/17/2013 by Porter Mcfadden MD at [facility] N/A / [id number] Knee Tib Opal Iicmnt Rt Sz5 N [id number] Ea1 - Sn/A Total Jt Right: KNEE JONES 07/25/2028 [id number] / Implanted: Qty: 1 on 02/26/2019 by Genaro Vallecillo MD at [facility] Knee N/A / [id number] Description: verbally verified per Dr Vallecillo Knee Fem Lgn Cr Oxin Rt Sz6 N [id number] Ea1 - Sn/A Total Jt Knee Right: KNEE JONES 06/19/2028 [id number] / Implanted: Qty: 1 on 02/26/2019 by Genaro Vallecillo MD at [facility] N/A / [id number] Description: verbally verified per Dr Vallecillo Knee Ptla Gsii W Peg 32mm N [id number] - Sn/A Total Jt Knee Right: KNEE JONES 12/07/2028 [id number] / Implanted: Qty: 1 on 02/26/2019 by Genaro Vallecillo MD at [facility] N/A / [id number] Description: verbally verified per Dr Vallecillo Knee Insrt Xlpe Crddsz5-6 11mm N [id number] [facility] - Sn/A Total Jt Knee Right: KNEE JONES 03/10/2028 [id number] / Implanted: Qty: 1 on 02/26/2019 by Genaro Vallecillo MD at [facility] N/A / [id number] Description: verbally verified per Dr Vallecillo Mesh Ventralight Echo 6x10 N [id number] Ca1 - [id number] N/A: ABDOMEN BARD DAVOL 01/09/2018 [id number] / Implanted: Qty: 1 on 10/10/2016 by Robert Alvarez DO at [facility] [id number] / [id number] Cmnt Bone Simplex Tobramyacin N 6197-9-010 Bx10/Ea1 - Sn/A Left: KNEE LRORIE 09/11/2018 6197-9-001 / Implanted: Qty: 1 on 06/17/2017 by Porter Mcfadden MD at [facility] N/A / [id number] Description:Implant confirmed w/ Dr. Mcfadden intraop by OR staff. Knee Psn Ptla All Pe Ve 35mm N [id number] Ea - Sn/A Left: KNEE CLAUDIO 05/14/2022 [id number] / Implanted: Qty: 1 on 06/17/2017 by Porter Mcfadden MD at [facility] N/A / [id number] Description:Implant confirmed w/ Mariah Mcfadden intraop by OR staff. Knee Psn Asf Dmshfve09vp6-39ig N 84-4483-537-12 Ea - Sn/A Left: KNEE CLAUDIO 03/13/2022 [id number] / Implanted: Qty: 1 on 06/17/2017 by Porter Mcfadden MD at [facility] N/A / [id number] Description:Implant confirmed w/ Dr. Lesa hu by OR staff. Knee Psn Fem Crcmnt Std Lftsz9 N 12-3657-670-01 Ea - Sn/A Left: KNEE CLAUDIO 12/12/2026 [id number] / Implanted: Qty: 1 on 06/17/2017 by Porter Mcfadden MD at [facility] N/A / [id number] Description:Implant confirmed w/ Dr. Lesa hu by OR staff. Knee Psn Tib Stem 5d Lft Szf N 91-4692-059-01 Ea - Sn/A Left: KNEE CLAUDIO 03/13/2027 [id number] / Implanted: Qty: 1 on 06/17/2017 by Porter Mcfadden MD at [facility] N/A / [id number] Description:Implant confirmed w/ Dr. Lesa hu by OR staff. Cmnt Bone Simplex P Stry N 6191-1-010 Bx10/Ea - Sn/A Right: KNEE LORRIE 08/11/2020 6191-1-010 / Implanted: Qty: 1 on 02/26/2019 by Genaro Vallecillo MD at [facility] N/A / [id number] Description: verbally verified per Dr Vallecillo documented as of this encounter Procedures Procedure Name Priority Date/Time Associated Comments Diagnosis PHOSPHORUS Routine 03/02/2019 Results for 4:54 AM RECORDS CLERK this procedure are in the results section. MAGNESIUM Routine 03/02/2019 Results for 4:54 AM RECORDS CLERK this procedure are in the results section. BASIC METABOLIC PANEL Routine 03/02/2019 Results for 4:54 AM RECORDS CLERK this procedure are in the results section. LAB ONLY-COMPLETE BLOOD COUNT Routine 03/01/2019 Results for WITH DIFFERENTIAL 7:48 AM RECORDS CLERK this procedure are in the results section. MAGNESIUM Routine 03/01/2019 Results for 7:48 AM RECORDS CLERK this procedure are in the results section. RENAL FUNCTION PANEL Routine 03/01/2019 Results for 7:48 AM RECORDS CLERK this procedure are in the results section. LAB ONLY-COMPLETE BLOOD COUNT Routine 03/01/2019 Results for WITH DIFFERENTIAL 7:48 AM RECORDS CLERK this procedure are in the results section. ESOPHAGOGASTRODUODENOSCOPY 02/28/2019 Results for 4:11 PM RECORDS CLERK this procedure are in the results section. HEMOGLOBIN Routine 02/27/2019 Results for 6:12 AM RECORDS CLERK this procedure are in the results section. BASIC METABOLIC PANEL Routine 02/27/2019 Results for 6:12 AM RECORDS CLERK this procedure are in the results section. XRAY KNEE 1-2 VIEWS RT Routine 02/26/2019 Results for 12:49 PM RECORDS CLERK this procedure are in the results section. TISSUE EXAM Routine 02/26/2019 Primary Results for 10:50 AM RECORDS CLERK osteoarthritis of this right knee procedure are in the results section. ARTHROPLASTY KNEE 02/26/2019 Primary 9:39 AM RECORDS CLERK osteoarthritis of right knee Special Needs *X* diabetic GLUCOSE BY METER, POCT Routine 02/26/2019 7:49 AM RECORDS CLERK POTASSIUM STAT 02/26/2019 7:43 AM RECORDS CLERK documented in this encounter Results PHOSPHORUS (03/02/2019 4:54 AM RECORDS CLERK) Phosphorus 1.5 (L) 2.5 - 4.5 mg/dL [address] Specimen Blood Performing Organization Address [facility] Phone Number [address] [place] [address] MAGNESIUM (03/02/2019 4:54 AM RECORDS CLERK) Magnesium 2.0 1.8 - 2.4 mg/dL [address] Specimen Blood Performing Organization Address [facility] Phone Number [address] [place] [address] BASIC METABOLIC PANEL (03/02/2019 4:54 AM RECORDS CLERK) Pathologist [facility] Glucose 128 (H) 70 - 100 mg/dL [address] BUN 14 6 - 22 mg/dL [address] Creatinine 0.85 0.80 - 1.[address] mg/dL BUN/Creatinine Ratio 16.5 10.0 - 25.[address] Sodium 140 135 - 145 meq/L [address] Potassium 4.2 3.5 - 5.3 meq/L [address] Chloride 103 99 - 110 meq/L [address] CO2 30 (H) 20 - 29 meq/L [address] Anion Gap with K 11 6 - 20 meq/L [address] Calcium 8.3 (L) 8.5 - 10.5 mg/dL [address] Age [address] eGFR Non- 90 >=[address] Iranian mL/min/1.73m2 eGFR >90 >=[address] mL/min/1.73m2 Specimen Blood Performing Organization Address City/State/Zipcode Phone Number [address] [place] [phone] LAB ONLY-COMPLETE BLOOD COUNT WITH DIFFERENTIAL (03/01/2019 7:48 AM RECORDS CLERK) [facility] WBC 9.4 4.0 - 11.0 K/uL [address] RBC 2.95 (L) 4.40 - 5.[address] M/uL Hemoglobin 9.4 (L) 13.5 - 17.[address] g/dL Hematocrit 29.4 (L) 40.0 - 50.0 % [address] MCV 99.7 (H) 80.0 - 98.[address] MCH 31.9 25.5 - 34.[address] MCHC 32.0 31.5 - 36.[address] g/dL RDW-CV 14.8 11.5 - 15.5 % [address] RDW-SD 54.2 (H) 35.5 - 50.[address] Platelet Count 144 140 - 400 K/uL [address] MPV 11.5 8.5 - 12.[address] Seg Neut Absolute 7.9 1.8 - 8.0 K/uL [address] Lymphocytes Absolute 0.7 (L) 0.8 - 4.1 K/uL [address] Monocytes Absolute 0.7 0.0 - 1.0 K/uL [address] Eosinophils Absolute 0.0 0.0 - 0.7 K/uL [address] Basophil Absolute 0.0 0.0 - 0.2 K/uL [address] Immature Granulocyte 0.13 (H) 0.00 - 0.[address] Absolute K/uL Neutrophils Abs. 7,900 /uL [address] (Segs and Bands) Neutrophils Percent 83.5 % [address] Lymphocytes Percent 7.4 % [address] Monocytes Percent 7.4 % [address] Immature Granulocyte 1.4 % [address] Percent Eosinophils Percent 0.1 % [address] Basophil Percent 0.2 % [address] Nucleated RBC 0 /[address] Specimen Blood Performing Organization Address [facility] Phone Number [address] [address] MAGNESIUM (03/01/2019 7:48 AM RECORDS CLERK) Magnesium 1.8 1.8 - 2.4 mg/dL [address] Specimen Blood Performing Organization Address [facility] Phone Number [address] [address] RENAL FUNCTION PANEL (03/01/2019 7:48 AM RECORDS CLERK) Glucose 176 (H) 70 - 100 mg/dL [address] BUN 14 6 - 22 mg/dL [address] Creatinine 0.85 0.80 - 1.[address] mg/dL BUN/Creatinine Ratio 16.5 10.0 - 25.[address] Sodium 142 135 - 145 meq/L [address] Potassium 3.9 3.5 - 5.3 meq/L [address] Chloride 104 99 - 110 meq/L [address] CO2 30 (H) 20 - 29 meq/L [address] Anion Gap with K 12 6 - 20 meq/L [address] Calcium 8.2 (L) 8.5 - 10.5 mg/dL [address] Phosphorus 1.8 (L) 2.5 - 4.5 mg/dL [address] Albumin 3.3 (L) 3.5 - 5.0 g/dL [address] Corrected Calcium 8.8 8.5 - 10.5 mg/dL [address] Age [address] eGFR Non- 90 >=[address] Iranian mL/min/1.73m2 eGFR >90 >=[address] mL/min/1.73m2 Specimen Blood Performing Organization Address City/[facility] Phone Number [address] [place] [phone] ESOPHAGOGASTRODUODENOSCOPY (02/28/2019 4:11 PM RECORDS CLERK) EGD [facility] Gastroenterology Lab __ Patient Name: Johnny PatinoProcedure Date: 2018 4:11 PM Date of : 1950 Admit Type: Inpatient Age: 69 Gender: Male Surgeon: BRENDAN PETTY MD __ Procedure:Upper GI endoscopy Indications:Dysphagia, history of Ramonita en Y gastric by pass surgery , anastomosis ulcer, food impaction Patient Profile:Refer to note in patient chart for documentation of history and physical. Providers:BRENDAN PETTY MD, YASEMIN REYEZ RN, DIEGO ESTEVEZ RN CC Provider:TOMMIE LEDESMA MD, Tommie Ledesma __ Medicines:General Anesthesia Complications:No immediate complications. Estimated Blood Loss: Estimated blood loss: none. Procedure: Pre-Anesthesia Assessment: - Prior to the procedure, a History and Physical was performed, and patient medications and allergies were reviewed. The patient is competent. The risks and benefits of the procedure and the sedation options and risks were discussed with the patient. All questions were answered and informed consent was obtained. Patient identification and proposed procedure were verified by the physician in the pre- procedure area. Mental Status Examination: alert and oriented. Airway Examination: normal oropharyngeal airway and neck mobility. Respiratory Examination: clear to auscultation. CV Examination: normal. Prophylactic Antibiotics: The patient does not require prophylactic antibiotics. Prior Anticoagulants: The patient has taken no previous anticoagulant or antiplatelet agents. ASA Grade Assessment: III - A patient with severe systemic disease. After reviewing the risks and benefits, the patient was deemed in satisfactory condition to undergo the procedure. The anesthesia plan was to use general anesthesia. Immediately prior to administration of medications, the patient was re-assessed for adequacy to receive sedatives. The heart rate, respiratory rate, oxygen saturations, blood pressure, adequacy of pulmonary ventilation, and response to care were monitored throughout the procedure. The physical status of the patient was re-assessed after the procedure. After obtaining informed consent, the endoscope was passed under direct vision. Throughout the procedure, the patient's blood pressure, pulse, and oxygen saturations were monitored continuously. The [id number] was introduced through the mouth, and advanced to the second part of duodenum. The upper GI endoscopy was accomplished without difficulty. The patient tolerated the procedure well. Findings: Fluid was found in the lower third of the esophagus. The exam of the esophagus was otherwise normal. Evidence of a Ramonita-en-Y gastrojejunostomy was found. The gastrojejunal anastomosis was characterized by healthy appearing mucosa. This was traversed. The smytv-vx-[id number] limb was characterized by healthy appearing mucosa. A large amount of food (residue) was found in the entire examined stomach pouch. Removal of food was accomplished by Davis net . The examined jejunum was normal. Impression: - Fluid in the lower third of the esophagus. - Ramonita-en-Y gastrojejunostomy with gastrojejunal anastomosis characterized by healthy appearing mucosa. - A large amount of food (residue) in the stomach pouch. Removal was successful. - Normal examined jejunum. Recommendation: - Return patient to hospital [facility] for ongoing care. - Clear liquid diet for 2 days then full liquid - Continue present medications. Procedure Code(s): --- Professional --- 42783, Esophagogastroduodenoscopy, flexible, transoral; with removal of foreign body(s) --- Technical --- 39310, Esophagogastroduodenoscopy, flexible, transoral; with removal of foreign body(s) Diagnosis Code(s): --- Professional --- Z98.0, Intestinal bypass and anastomosis status T18.2XXA, Foreign body in stomach, initial encounter R13.10, Dysphagia, unspecified --- Technical --- Z98.0, Intestinal bypass and anastomosis status T18.2XXA, Foreign body in stomach, initial encounter R13.10, Dysphagia, unspecified CPT copyright 2018 [employer]. All rights reserved. The codes documented in this report are preliminary and upon internet site designer review may be revised to meet current compliance requirements. Dr. Brendan Petty BRENDAN PETTY MD 02/28/2019 6:09:33 PM This report has been signed electronically.BRENDAN PETTY MD Number of Addenda: 0 Note Initiated On: 02/28/2019 4:11 PM Total Procedure Duration Time 1 hour 26 minutes 31 seconds Scope In: 4:36:42 PM Scope Out: 6:03:13 PM Specimen BASIC METABOLIC PANEL (02/27/2019 6:12 AM RECORDS CLERK) Glucose 158 (H) 70 - 100 mg/dL [facility] BUN 21 6 - 22 mg/dL [facility] Creatinine 1.03 0.80 - 1.[address] [facility] mg/dL [place] BUN/Creatinine Ratio 20.4 10.0 - 25.0 [facility] Sodium 141 135 - 145 meq/L [facility] Potassium 4.4 3.5 - 5.3 meq/L [facility] Chloride 107 99 - 110 meq/L [facility] CO2 27 20 - 29 meq/L [facility] Anion Gap with K 11 6 - 20 meq/L [facility] Calcium 8.5 8.5 - 10.[address] [facility] mg/dL [place] Age 69 Years [facility] eGFR Non- 72 >=60 [facility] mL/min/1.73m2 [place] eGFR 87 >=[address] [facility] mL/min/1.73m2 [place] Specimen Blood Performing Organization Address City/[facility] Phone Number [facility] [address] [place] [phone] HEMOGLOBIN (02/27/2019 6:12 AM RECORDS CLERK) Hemoglobin 9.6 (L) 13.5 - 17.5 g/dL [facility] Specimen Blood Performing Organization Address City/[facility] Phone Number [facility] [address] [place] [phone] XRAY KNEE 1-2V - RT (02/26/2019 12:49 PM RECORDS CLERK) Specimen Narrative Performed At [facility] Patient Name: JOHNNY PATINO Date of :1950 Procedure: XRAY KNEE 1-2 VIEWS RT Date of Service: 02/26/2019 EXAM: XRAY KNEE 1-2 VIEWS RT INDICATION: tka ADDITIONAL INDICATION: None. COMPARISON(S): None FINDINGS: Total arthroplasty of the right knee. Hardware is stable in alignment and configuration without abnormal lucency at cement hardware interface. IMPRESSION: 1. Normal appearance at baseline after arthroplasty procedure. Finalized by: Radha Murry MD on 02/26/2019 12:52 PM RECORDS CLERK Patient/Procedure Information: [facility] MRN/LORENZO: [id number] Order Number: [id number] Accession Number: [id number] Ordering Provider: GENARO LEE Authorizing Provider: GENARO LEE Procedure Note Interface, Radiantres - 02/26/2019 12:54 PM RECORDS CLERK Patient Name: JOHNNY PATINO Date of : 1950 Procedure: XRAY KNEE 1-2 VIEWS RT Date of Service: 02/26/2019 EXAM: XRAY KNEE 1-2 VIEWS RT INDICATION: tka ADDITIONAL INDICATION: None. COMPARISON(S): None FINDINGS: Total arthroplasty of the right knee. Hardware is stable in alignment and configuration without abnormal lucency at cement hardware interface. IMPRESSION: 1. Normal appearance at baseline after arthroplasty procedure. Finalized by: Radha Murry MD on 02/26/2019 12:52 PM RECORDS CLERK Patient/Procedure Information: [facility] MRN/[place]: [id number] Order Number: [id number] Accession Number: [id number] Ordering Provider: GENARO LEE Authorizing Provider: GENARO LEE Performing Organization Address City/State/Zipcode Phone Number [id number] TISSUE EXAM (02/26/2019 10:50 AM RECORDS CLERK) FINAL DIAGNOSIS Bone and soft tissue, right knee, arthroplasty: [facility] Electronically signed - Bone fragments with changes grossly consistent with degenerative joint disease, and soft tissue fragments without gross pathological abnormality ( gross examination only; see gross description). CLINIC by Hossein Rainey MD on 03/01/2019 at JJB:kassie 12:52 PM GROSS DESCRIPTION Received in formalin labeled "right knee bone and tissue" is a 12.2 x 11.8 x 1.7 cm aggregate of multiple yellow-womack bone and soft tissue fragments, including the tibial plateau and femoral condyles. Th [facility] e patella is present. The articular surfaces show areas of eburnation, osteophyte formation and focal pitting. The specimen is for gross only diagnosis, no sections are submitted. CLINIC SS:sl MICROSCOPIC [facility] DESCRIPTION CLINIC CASE REPORT Surgical Pathology Report Case: [id number] [facility] Authorizing Provider:Genaro Vallecillo MD Collected: 02/26/2019 1050 CLINIC Ordering Location: Intra [facility] Received: 02/26/2019 1247 Pathologist: Hossein Rainey MD Specimen:Knee, right knee bone and tissue EMBEDDED IMAGES [facility] Specimen Tissue Performing Organization Address City/[facility]/Zipcode Phone Number [facility] [address] [place] [address] GLUCOSE BY METER, POCT (02/26/2019 7:49 AM RECORDS CLERK) Glucose POC 150 (H) 70 - 100 mg/dL [facility] Specimen Blood Performing Organization Address City/[facility] Phone Number [facility] [address] [facility] [place] [phone] POTASSIUM (02/26/2019 7:43 AM RECORDS CLERK) Potassium 4.1 3.5 - 5.3 meq/L [facility] Specimen Blood Performing Organization Address [facility] Phone Number [facility] [address] 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 CKD (chronic kidney disease) stage 3, GFR 30-59 ml/min ([facility]) Chronic kidney disease, Stage III (moderate) Essential hypertension Unspecified essential hypertension Gout Gout, unspecified Obstructive sleep apnea Obstructive sleep apnea (adult) (pediatric) Type 2 diabetes mellitus with complication (HCC) documented in this encounter Discharge Diagnoses Not on filedocumented in this encounter Administered Medications Medication Order MAR Action Action Date Dose Rate Site acetaminophen (TYLENOL) tablet Given 03/02/2019 11:45 AM RECORDS CLERK 650 mg 650 mg 650 mg, Oral, Every six hours, First dose on Fri02/26/19 at 1800, Until Discontinued, Alternate with tramadol (ULTRAM); Total dose of acetaminophen from all acetaminophen containing products should not exceed 4 grams (4000 mg) per day., Given 03/02/2019 5:54 AM RECORDS CLERK 650 mg Given 03/01/2019 5:17 PM RECORDS CLERK 650 mg allopurinol (ZYLOPRIM) tablet 100 mg Given 03/02/2019 8:19 AM RECORDS CLERK 100 mg 100 mg, Oral, Daily, First dose on Fri02/27/19 at 0900, Until Discontinued Given 03/01/2019 8:07 AM RECORDS CLERK 100 mg Given 02/27/2019 8:38 AM RECORDS CLERK 100 mg amLODIPine (NORVASC) tablet 2.5 mg Given 03/01/2019 7:59 PM RECORDS CLERK 2.5 mg 2.5 mg, Oral, Every evening, First dose on Fri02/26/19 at 2100, Until Discontinued, Hold for SBP less than 100, Given 02/28/2019 8:46 PM RECORDS CLERK 2.5 mg Given 02/26/2019 8:39 PM RECORDS CLERK 2.5 mg apixaban (ELIQUIS) tablet 2.5 mg Given 03/02/2019 8:20 AM RECORDS CLERK 2.5 mg 2.5 mg, Oral, Two times a day, 22 doses, First dose on Fri03/02/19 at 0900, Last dose on Fri03/12/19 at 2100 benzocaine-menthol (CEPACOL w/ Given 02/28/2019 10:01 PM RECORDS CLERK 1 lozenge BENZOCAINE) lozenge 1 lozenge 1 lozenge, Mouth/Throat, Every four hours prn, Starting Fri02/26/19 at 1434, Until Discontinued, sore throat, other (Specify), throat irritation, Exception: Patients with dysphagia, radiation mucositis/esophagitis or without a gag reflex., bisacodyl (DULCOLAX) enteric coated tablet 5 Given 03/01/2019 3:11 AM RECORDS CLERK 5 mg mg 5 mg, Oral, Two times a day prn, Starting Fri02/26/19 at 1434, Until Discontinued, constipation, SECOND choice or per patient preference, calcitriol (ROCALTROL) capsule 0.25 mcg Given 02/27/2019 8:36 AM RECORDS CLERK 0.25 mcg 0.25 mcg, Oral, Every other day, First dose on Fri02/27/19 at 0900, Until Discontinued calcium carbonate (TUMS) chewable tablet 500 Given 03/02/2019 11:45 AM RECORDS CLERK 500 mg mg 500 mg, Oral, Three times a day with meals, First dose on Fri02/27/19 at 0730, Until Discontinued Given 03/02/2019 8:20 AM RECORDS CLERK 500 mg Given 03/01/2019 4:04 PM RECORDS CLERK 500 mg calcium carbonate (TUMS) chewable tablet 500 mg 500 mg, Oral, Four times a day prn, Starting 03/01/19 at 2147, Until Discontinued, indigestion fentaNYL 100 mcg/2 mL preservative free Given 02/28/2019 3:40 PM RECORDS CLERK 50 mcg injection solution 50 mcg 50 mcg, IV, Every thirty minutes prn, Starting Fri02/26/19 at 1434, Until Discontinued, severe pain, 2 mL, If pain unrelieved by oxycodone, Given 02/28/2019 2:07 PM RECORDS CLERK 50 mcg Given 02/27/2019 8:35 PM RECORDS CLERK 50 mcg gabapentin (NEURONTIN) capsule 300 mg Given 03/01/2019 7:59 PM RECORDS CLERK 300 mg 300 mg, Oral, Bedtime, First dose on Fri02/26/19 at 2100, Until Discontinued Given 02/28/2019 8:46 PM RECORDS CLERK 300 mg Given 02/26/2019 8:38 PM RECORDS CLERK 300 mg hydrOXYzine pamoate (VISTARIL) capsule 25 mg Given 02/26/2019 11:34 PM RECORDS CLERK 25 mg 25 mg, Oral, Every six hours prn, Starting Fri02/26/19 at 1711, Until Discontinued, anxiety, muscle spasm Given 02/26/2019 5:36 PM RECORDS CLERK 25 mg labetalol (NORMODYNE;TRANDATE) IV solution 10 mg 10 mg, IV, Every six hours prn, Starting Fri02/28/19 at 0917, Until Discontinued, blood pressure, for SBP>180., 20 mL magnesium hydroxide (MILK OF MAGNESIA) oral Given 03/01/2019 5:17 PM RECORDS CLERK 30 mL suspension 30 mL 30 mL, Oral, Two times a day prn, Starting Fri02/26/19 at 1434, Until Discontinued, constipation, 30 mL, FIRST choice or per patient preference. Exception: Nephrology/renal patients, oxybutynin (DITROPAN-XL) SR tablet (24 hr) 15 Given 03/01/2019 7:59 PM RECORDS CLERK 15 mg mg 15 mg, Oral, Bedtime, First dose on Fri02/26/19 at 2100, Until Discontinued, Tablet should not be crushed or chewed., Given 02/28/2019 10:01 PM RECORDS CLERK 15 mg Given 02/26/2019 8:39 PM RECORDS CLERK 15 mg oxyCODONE (OXY-IR) tablet 5-10 mg Given 03/02/2019 12:58 PM RECORDS CLERK 5 mg 5-10 mg, Oral, Every four hours prn, Starting Fri02/26/19 at 1434, Until Discontinued, moderate pain, severe pain, For patients with moderate pain, pain rating of 4-6, give Oxycodone 5mg PO every 4 hours PRN. For patients with severe pain, pain rating of 7-10, give Oxycodone 10mg PO every 4 hours PRN., Given 02/27/2019 4:57 PM RECORDS CLERK 10 mg Given 02/27/2019 12:13 PM RECORDS CLERK 10 mg pantoprazole (PROTONIX) for injection 40 mg Given 03/02/2019 8:19 AM RECORDS CLERK 40 mg vial 40 mg, IV, Daily, First dose on Fri02/28/19 at 0925, Until Discontinued, Reconstitute with 10 mL 0.9% sodium chloride to yield 4 mg/mL. Administer dose IV push over at least 2 minutes., Given 03/01/2019 8:07 AM RECORDS CLERK 40 mg Given 02/28/2019 10:12 AM RECORDS CLERK 40 mg polyethylene glycol (MIRALAX) packet 1 Given 03/02/2019 8:19 AM RECORDS CLERK 1 packet packet 1 packet, Oral, Daily, First dose on 02/27/19 at 0900, Until Discontinued, Hold if 2 loose stools occur in the last 24 hours., Given 03/01/2019 8:07 AM RECORDS CLERK 1 packet Given 02/27/2019 8:35 AM RECORDS CLERK 1 packet potassium citrate (UROCIT-K) CR tablet 10 Given 02/27/2019 5:54 PM RECORDS CLERK 10 mEq mEq 10 mEq, Oral, Three times a day with meals, First dose on Fri02/26/19 at 1905, Until Discontinued, Tablet should not be crushed or chewed., Given 02/27/2019 12:12 PM RECORDS CLERK 10 mEq Given 02/27/2019 8:35 AM RECORDS CLERK 10 mEq predniSONE tablet 3 mg Given 03/02/2019 8:22 AM RECORDS CLERK 3 mg 3 mg, Oral, DAILY, First dose on Fri02/27/19 at 0900, Until Discontinued Given 03/01/2019 8:25 AM RECORDS CLERK 3 mg Given 02/27/2019 8:35 AM RECORDS CLERK 3 mg senna-docusate sodium Given 03/02/2019 8:20 AM RECORDS CLERK 1 tablet (SENOKOT-S;PERICOLACE) tablet 1 tablet 1 tablet, Oral, Two times a day, First dose on Fri02/26/19 at 2100, Until Discontinued, Hold if 2 loose stools occur in the last 24 hours., Given 03/01/2019 7:59 PM RECORDS CLERK 1 tablet Given 03/01/2019 8:07 AM RECORDS CLERK 1 tablet sertraline (ZOLOFT) tablet 50 mg Given 03/01/2019 7:59 PM RECORDS CLERK 50 mg 50 mg, Oral, Bedtime, First dose on Fri02/26/19 at 2100, Until Discontinued Given 02/28/2019 8:46 PM RECORDS CLERK 50 mg Given 02/26/2019 8:39 PM RECORDS CLERK 50 mg sodium chloride 0.9% flush (adult) 10 mL Given 03/02/2019 8:20 AM RECORDS CLERK 10 mL 10 mL, IV, Two times a day and prn, First dose on Fri02/26/19 at 2100, Until Discontinued, 10 mL, Post - Op, Flush IV line as scheduled and as often as necessary before and after meds., Given 03/01/2019 7:59 PM RECORDS CLERK 10 mL Given 02/28/2019 10:01 PM RECORDS CLERK 10 mL traMADol (ULTRAM) tablet 100 mg Given 03/02/2019 8:19 AM RECORDS CLERK 100 mg 100 mg, Oral, Every six hours, First dose on Fri02/26/19 at 1500, Until Discontinued, Alternate with acetaminophen (TYLENOL). Recommended maximum daily dose of infEIVuc=056 mg. Recommended maximum daily dose in patients greater than 75 years of age=300 mg, Given 03/02/2019 4:08 AM RECORDS CLERK 100 mg Given 03/01/2019 9:47 PM RECORDS CLERK 100 mg vitamin D3 (cholecalciferol) tablet Given 03/02/2019 8:19 AM RECORDS CLERK 1,000 Units 1,000 Units 1,000 Units, Oral, DAILY, First dose on Fri02/27/19 at 0900, Until Discontinued Given 03/01/2019 8:07 AM RECORDS CLERK 1,000 Units Given 02/27/2019 8:37 AM RECORDS CLERK 1,000 Units Medication Order MAR Action Action Date Dose Rate Site acetaminophen (TYLENOL) tablet Given 02/26/2019 8:21 AM RECORDS CLERK 1,000 mg 1,000 mg 1,000 mg, Oral, Pre-op, 1 dose, Fri02/26/19 at 0735, Pre - Op, Total dose of acetaminophen from all acetaminophen containing products should not exceed 4 grams (4000 mg) per day., apixaban (ELIQUIS) tablet 2.5 mg Given 02/27/2019 8:36 AM RECORDS CLERK 2.5 mg 2.5 mg, Oral, Two times a day, 24 doses, First dose on Fri02/27/19 at 1030, Last dose on Fri03/10/19 at 2100, Post - Op ceFAZolin (ANCEF) 2000 mg/20 mL sterile Given 02/27/2019 3:15 AM RECORDS CLERK 2,000 mg water IV syringe 2,000 mg, IV, Every eight hours, 2 doses, First dose on Fri02/26/19 at 1830, Last dose on Fri02/27/19 at 0230, 20 mL, PACU - Continue Post-Op, Administer as IV push over 4 minutes., Given 02/26/2019 6:23 PM RECORDS CLERK 2,000 mg enoxaparin (LOVENOX) subcutaneous injection Given 03/01/2019 8:07 AM RECORDS CLERK 40 mg solution 40 mg 40 mg, Subcutaneous, Daily, First dose on Fri02/28/19 at 0940, Until Discontinued, To avoid the loss of drug when using the 30 mg and 40 mg prefilled syringes, do not expel the air bubble from the syringe before the injection. Administration should be alternated between the left and right anterolateral and left and right posterolateral abdominal wall. The whole length of the needle should be introduced into a skin fold held between the thumb and forefinger; the skin fold should be held throughout the injection. To minimize bruising, do not rub the injection site after completion of the injection., Given 02/28/2019 10:16 AM RECORDS CLERK 40 mg gabapentin (NEURONTIN) capsule 600 mg Given 02/26/2019 8:22 AM RECORDS CLERK 600 mg 600 mg, Oral, Pre-op, 1 dose, Fri02/26/19 at 0735, Pre - Op, 1 dose prior to surgery, lactated ringers IV solution New Bag 02/26/2019 11:23 AM RECORDS CLERK IV, at 25 mL/hr, Continuous, Starting Fri02/26/19 at 0835, Until Fri02/26/19 at 1157, 1,000 mL, Pre - Op New Bag/Tubing 02/26/2019 8:17 AM RECORDS CLERK 25 mL/hr lactated ringers IV solution Rate Change 02/26/2019 11:57 AM RECORDS CLERK 125 mL/hr IV, at 125 mL/hr, Continuous, Starting Fri02/26/19 at 1210, Until Fri02/26/19 at 1408, 1,000 mL, PACU, TKO current fluids if patient is going to Day Unit / ARU and tolerating PO fluids without nausea., metoprolol tartrate (LOPRESSOR) IV solution Given 02/28/2019 10:12 AM RECORDS CLERK 2.5 mg 2.5 mg 2.5 mg, IV, Every six hours, First dose on Fri02/28/19 at 1000, Until Discontinued, 5 mL, Hold if SBP<120., pantoprazole (PROTONIX) enteric coated tablet Given 02/27/2019 5:55 PM RECORDS CLERK 20 mg 20 mg 20 mg, Oral, Two times a day before meals, First dose on Fri02/26/19 at 1905, Until Discontinued, Tablet should be swallowed whole and not be divided, crushed or chewed., Given 02/27/2019 6:17 AM RECORDS CLERK 20 mg Given 02/26/2019 8:39 PM RECORDS CLERK 20 mg sodium chloride 0.9% IV solution New Bag/Tubing 02/27/2019 6:19 PM RECORDS CLERK 125 mL/hr IV, at 125 mL/hr, Continuous, Starting Fri02/26/19 at 1435, Until Fri02/28/19 at 0035, 1,000 mL, Post - Op New Bag 02/26/2019 3:30 PM RECORDS CLERK 125 mL/hr sodium chloride 0.9% IV solution Rate Change 02/28/2019 7:51 PM RECORDS CLERK 75 mL/hr IV, at 75 mL/hr, Continuous, Starting Fri02/28/19 at 1020, Until Fri03/01/19 at 1136, 1,000 mL Restarted 02/28/2019 10:09 AM RECORDS CLERK 100 mL/hr sodium chloride 0.9% IV Already Infusing 02/28/2019 6:18 PM RECORDS CLERK 125 mL/ hr solution IV, at 125 mL/hr, Continuous, Starting Fri02/28/19 at 1830, Until Fri02/28/19 at 1902, 1,000 mL, PACU, TKO current fluids if patient is going to Day Unit / ARU and tolerating PO fluids without nausea., traMADol (ULTRAM) tablet 100 mg Given 02/26/2019 8:21 AM RECORDS CLERK 100 mg 100 mg, Oral, Pre-op, 1 dose, Fri02/26/19 at 0735, Pre - Op, Recommended maximum daily dose of viwpprwh=965 mg. Recommended maximum daily dose in patients 75 years or yfjew=231 mg., documented in this encounter
[2019-03-04] MEDS: oxyCODONE 5 MG Tab PO PRN ×4 (06:56→23:16)
[2019-03-04] MEDS: Pantoprazole 40 MG Tab.CR PO SCH ×2 (07:02→17:22)
[2019-03-04] MEDS: Apixaban 2.5 MG Tab PO SCH ×2 (07:03→17:24)
[2019-03-04] MEDS: Polyethylene Glycol 3350 Powder 17 GM Packet PO SCH (07:03)
[2019-03-04] MEDS: Gabapentin 300 MG Cap PO SCH (07:04)
[2019-03-04] MEDS: amLODIPine 5 MG Tab PO SCH (07:05)
[2019-03-04] MEDS: Oxybutynin 5 MG Tab.ER PO SCH (07:07)
[2019-03-04] MEDS: predniSONE 1 MG Tab PO SCH (07:08)
[2019-03-04] MEDS: Triamcinolone Acetonide 0.5% Crm 15 GM Tube TOP SCH ×2 (07:09→20:05)
[2019-03-04] MEDS: Cholecalciferol (Vitamin D3) 25 MCG Tab PO SCH (07:10)
[2019-03-04] MEDS: Calcium Carbonate 500 MG Tab.Chew PO SCH ×3 (07:10→17:25)
[2019-03-04] MEDS: Allopurinol 100 MG Tab PO SCH (07:11)
[2019-03-04] MEDS: Sertraline 50 MG Tab PO SCH (07:11)
[2019-03-04 08:34] LABS: CHLORIDE,CL 107 mmol/L (98-107); SODIUM,NA 144 mmol/L (136-145)
[2019-03-04] MEDS: Acetaminophen 500 MG Tab PO PRN ×2 (11:31→23:15)
[2019-03-04] MEDS: Calcitriol 0.25 MCG Cap PO SCH (17:23)
[2019-03-04] MEDS ORDERED: Polyethylene Glycol 3350 Powder 17 GM Packet PO PRN (17:33)
[2019-03-05] MEDS ORDERED: Polyethylene Glycol 3350 Powder 510 GM Bot PO SCH (08:00)
[2019-03-05 08:09] LABS: CHLORIDE,CL 108 mmol/L (98-107); SODIUM,NA 146 mmol/L (136-145)
[2019-03-05] MEDS: amLODIPine 5 MG Tab PO SCH (08:23)
[2019-03-05] MEDS: Apixaban 2.5 MG Tab PO SCH (08:23)
[2019-03-05] MEDS: Sertraline 50 MG Tab PO SCH (08:24)
[2019-03-05] MEDS: Allopurinol 100 MG Tab PO SCH (08:25)
[2019-03-05] MEDS ORDERED: Polyethylene Glycol 3350 Powder 510 GM Bot PO PRN (08:25)
[2019-03-05] MEDS: predniSONE 1 MG Tab PO SCH (08:25)
[2019-03-05] MEDS: Pantoprazole 40 MG Tab.CR PO SCH (08:27)
[2019-03-05] MEDS: Oxybutynin 5 MG Tab.ER PO SCH (08:27)
[2019-03-05] MEDS: oxyCODONE 5 MG Tab PO PRN (08:29)
[2019-03-05] MEDS: Gabapentin 300 MG Cap PO SCH (08:29)
[2019-03-05] MEDS: Acetaminophen 500 MG Tab PO PRN (08:30)
[2019-03-05] MEDS: Triamcinolone Acetonide 0.5% Crm 15 GM Tube TOP SCH (08:31)
[2019-03-05] MEDS: Calcium Carbonate 500 MG Tab.Chew PO SCH (08:32)
[2019-03-05] MEDS: Cholecalciferol (Vitamin D3) 25 MCG Tab PO SCH (08:32)
--- NOTE | 2019-03-05 10:55 | PCM.DCSUM1 ---
Discharge Summary - Hospital Course Brief History: Admitted s/p knee replacement for PT/OT and assistance with ADLs Diagnosis: Stroke: No - Discharge Data Discharge Date: 03/05/19 Discharge Disposition: Home, Self-Care 01 Condition: Good - Referral to Home Health Primary Care Physician: PCP Unknown - Discharge Diagnosis/Problem(s) (1) Status post right knee replacement SNOMED Code(s): 7600864677964, 904053275, [id number] ICD Code: Z96.651 - PRESENCE OF RIGHT ARTIFICIAL KNEE JOINT Status: Acute Priority: High Current Visit: Yes Onset Date: ~02/26/19 Problem Details : Here for PT/OT s/p procedure. Doing well. Will continue outpatient PT after discharge. (2) Hypertension SNOMED Code(s): 88100177 ICD Code: I10 - ESSENTIAL (PRIMARY) HYPERTENSION Status: Chronic Priority : Low Current Visit: No Problem Details: Stable overall. Qualifiers: Hypertension type: essential hypertension Qualified Code(s): I10 - Essential (primary) hypertension (3) Sleep apnea SNOMED Code(s): 69585267 ICD Code: G47.30 - SLEEP APNEA, UNSPECIFIED Status: Chronic Priority: Low Current Visit: No Problem Details: stable per patient Qualifiers: Sleep apnea type: unspecified type Qualified Code(s): G47.30 - Sleep apnea , unspecified (4) Osteoporosis SNOMED Code(s): 14114755 ICD Code: M81.0 - AGE-RELATED OSTEOPOROSIS W/O CURRENT PATHOLOGICAL FRACTURE Status: Chronic Priority: Low Current Visit: No Problem Details: stable per patient Qualifiers: Osteoporosis type: age-related Presence of current pathological fracture: without current pathological fracture Qualified Code(s): M81.0 - Age-related osteoporosis without current pathological fracture (5) Iron deficiency anemia SNOMED Code(s): 36033432 ICD Code: D50.9 - IRON DEFICIENCY ANEMIA, UNSPECIFIED Status: Chronic Priority: Low Current Visit: No Problem Details: Improved level today. Patient has chronic anemia since gastric bypass. Per self report does not get above 11 Hgb. Qualifiers: Iron deficiency anemia type: unspecified iron deficiency Qualified Code(s) : D50.9 - Iron deficiency anemia, unspecified (6) Chronic kidney disease SNOMED Code(s): 094189823 ICD Code: N18.9 - CHRONIC KIDNEY DISEASE, UNSPECIFIED Status: Chronic Priority: Low Current Visit: No Problem Details: stable per patient Qualifiers: Chronic kidney disease stage: stage 3 (moderate) Qualified Code(s): N18.3 - Chronic kidney disease, stage 3 (moderate) (7) Type 2 diabetes mellitus SNOMED Code(s): 94207724 ICD Code: E11.9 - TYPE 2 DIABETES MELLITUS WITHOUT COMPLICATIONS Status: Chronic Priority: Low Current Visit: Yes Problem Details: stable per patient Qualifiers: Diabetes mellitus termination clerk insulin use: without termination clerk use (8) Degenerative arthritis of spine SNOMED Code(s): 3044104 ICD Code: M47.9 - SPONDYLOSIS, UNSPECIFIED Status: Chronic Priority: Low Current Visit: No Problem Details: significant issues with stenosis/ arthritic changes/chronic pain down length of spine (9) GERD (gastroesophageal reflux disease) SNOMED Code(s): 668113921 ICD Code: K21.9 - GASTRO-ESOPHAGEAL REFLUX DISEASE WITHOUT ESOPHAGITIS Status: Chronic Priority: Low Current Visit: Yes Problem Details: Required intervention to push a piece of melon through gastro-esophageal sphincter over weekend. Is on soft diet per orders of GI for two weeks. Qualifiers: Esophagitis presence: esophagitis presence not specified Qualified Code(s) : K21.9 - Gastro-esophageal reflux disease without esophagitis (10) Chronic pain SNOMED Code(s): 44759583 ICD Code: G89.29 - OTHER CHRONIC PAIN Status: Chronic Priority: Low Current Visit: Yes Problem Details: Pain medication agreement with primary providers. 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 SNOMED Code(s): 84548149 ICD Code: I49.3 - VENTRICULAR PREMATURE DEPOLARIZATION Status: Chronic Priority: Low Current Visit: No Problem Details: Patient reports multiple workups in past and says that findings were 'unremarkable' (13) S/P gastric bypass SNOMED Code(s): 336937045, 036081139, 562894984, 580091534 ICD Code: Z98.84 - BARIATRIC SURGERY STATUS Status: Chronic Priority: Low Current Visit: No Problem Details: H/x bariatric surgery - Patient Summary/Data Consults: Consultations 03/02/19 17:17 Consult to Physical Therapy [PT Evaluation and Treatment] [CONS] Routine OT Evaluation and Treatment [CONS] Routine Recommended Follow-up Testing/Procedures: Patient to receive outpatient PT services to assist with recovery from knee replacement surgery. Hospital Course: Patient did well throughout stay. Participated in PT and OT. Knee is improving postoperatively. No acute changes during admission. - Patient Instructions Diet: GI Soft/Low Residue/Low Fiber Activity: As Tolerated Driving: Do Not Drive Showering/Bathing: May Shower Notify Provider of: Swelling and Redness, Drainage Other/Special Instructions: Follow up with Ortho and primary provider as previously planned. Follow up otherwise as needed if you have any problems. - Discharge Plan *PRESCRIPTION DRUG MONITORING PROGRAM REVIEWED*: Not Applicable *COPY OF PRESCRIPTION DRUG MONITORING REPORT IN PATIENT BIANCA: Not Applicable Prescriptions/Med Rec: Apixaban [Eliquis] 2.5 mg PO BID #14 tablet oxyCODONE 5 mg PO Q4H PRN #40 tablet PRN Reason: Pain Home Medications: Home Meds Acetaminophen 1,000 mg PO Q6H PRN 03/02/19 [History] Allopurinol [Zyloprim] 100 mg PO DAILY 03/02/19 [History] Betamethasone Dipropionate [Betamethasone Diprop Augmented] 1 applic TOP BID PRN 03/02/19 [History] Calcitriol 1 cap PO Q2D 03/02/19 [History] Calcium Carbonate [Tums] 500 mg PO TIDMEALS 03/02/19 [History] Cholecalciferol (Vitamin D3) [Vitamin D3] 1 tab PO DAILY 03/02/19 [History] Clotrimazole [Clotrimazole 1%] 1 applic TOP BID 03/02/19 [History] Docusate Sodium 1 cap PO DAILY PRN 03/02/19 [History] Gabapentin [Neurontin] 300 mg PO DAILY 03/02/19 [History] Multivit-Min/Iron/Folic Acid/K [Bariatric Mv-Iron 45 mg Cap] 1 cap PO BID [History] Oxybutynin Chloride [Oxybutynin Chloride ER] 15 mg PO DAILY 03/02/19 [History] Pantoprazole Sodium [Protonix] 20 mg PO BIDAC 03/02/19 [History] Polyethylene Glycol 3350 [MiraLAX] 17 gm PO DAILY 03/02/19 [History] Potassium Citrate [Potassium Citrate ER] 1 tab PO TIDMEALS 03/02/19 [History] Sennosides/Docusate Sodium [Dok Plus Tablet] 1 tab PO BID 03/02/19 [History] Sertraline [Zoloft] 50 mg PO DAILY 03/02/19 [History] amLODIPine [Norvasc] 2.5 mg PO DAILY 03/02/19 [History] oxyCODONE 1 - 2 tab PO Q4H PRN 03/02/19 [History] predniSONE [Prednisone] 3 mg PO DAILY 03/02/19 [History] Apixaban [Eliquis] 2.5 mg PO BID #14 tablet 03/05/19 [Rx] oxyCODONE 5 mg PO Q4H PRN #40 tablet 03/05/19 [Rx] - Discharge Summary/Plan Comment DC Time >30 min.: No - General Info Date of Service: 03/05/19 Admission Dx/Problem (Free Text: Admission Diagnosis/Problem Admission Diagnosis/Problem Status post total right knee replacement Subjective Update: Feeling improved. Doing well with PT. Knee pain controlled. Functional Status: Reports: Pain Controlled, Tolerating Diet, Ambulating, Urinating. Denies: New Symptoms - Review of Systems General: Denies: Fever, Malaise HEENT: Reports: No Symptoms, Glasses Pulmonary: Reports: No Symptoms. Denies: Pleuritic Chest Pain, Cough, Sputum Cardiovascular: Denies: Chest Pain, Orthopnea, Lightheadedness Gastrointestinal: Reports: No Symptoms Genitourinary: Denies: Dysuria, Frequency, Burning, Hematuria, Flank Pain Musculoskeletal: Reports: Other (knee pain from TKA improving) Skin: Reports: Bruising (around operative site) Neurological: Reports: No Symptoms Psychiatric: Reports: No Symptoms - Patient Data Vitals - Most Recent: Last Vital Signs Temp 36.6 C 03/05/19 08:00 Pulse 83 03/05/19 08:00 Resp 16 03/05/19 08:00 BP 120/57 L 03/05/19 08:23 Pulse Ox 94 L 03/05/19 08:00 Weight - Most Recent: 94.801 kg I&O - Last 24 hours: Intake & Output 03/04/19 03/05/19 03/05/19 22:59 06:59 14:59 Intake Total 720 420 Balance 720 420 Lab Results - Last 24 hrs: Laboratory Results - last 24 hr 03/05/19 03/05/19 03/05/19 Range/Units 07:35 07:35 07:35 WBC 7.3 (4.0-10.2) K/uL RBC 3.11 L (4.33-5.41) M/uL Hgb 9.7 L (13.1-16.8) g/dL Hct 30.8 L (39.0-49.0) % MCV 99.0 H (84.0-98.0) fL MCH 31.2 (28.2-33.3) pg MCHC 31.5 L (31.7-36.0) g/dL RDW 13.8 (11.2-14.1) % Plt Count 247 (150-350) K/uL Neut % (Auto) 68.9 (45.0-80.0) % Lymph % (Auto) 18.3 (10.0-50.0) % [place] % (Auto) 9.8 (2.0-14.0) % Eos % (Auto) 2.5 (0.0-5.0) % Baso % (Auto) 0.5 (0.0-2.0) % Neut # (Auto) 5.02 (1.40-7.00) K/uL Lymph # (Auto) 1.33 (0.50-3.50) K/uL [place] # (Auto) 0.71 (0.00-1.00) K/uL Eos # (Auto) 0.18 (0.00-0.50) K/uL Baso # (Auto) 0.04 (0.00-0.20) K/uL PT 10.8 (9.5-12.0) SEC INR 1.0 Sodium 146 H (136-145) mmol/L Potassium 3.8 (3.5-5.1) mmol/L Chloride 108 H (98-107) mmol/L Carbon Dioxide 28.9 (21.0-32.0) mmol/L BUN 9 (7-18) mg/dL Creatinine 0.81 (0.51-1.17) mg/dL Est Cr Clr Drug Dosing 71.22 mL/min Estimated GFR (MDRD) > 60 mL/min Glucose 147 H (74-106) mg/dL Calcium 8.7 (8.5-10.1) mg/dL Total Bilirubin 1.3 H (0.2-1.0) mg/dL AST 26 (15-37) U/L ALT 34 (12-78) U/L Alkaline Phosphatase 84 (46-116) IU/L Total Protein 6.5 (6.4-8.2) g/dL Albumin 3.1 L (3.4-5.0) g/dL Med Orders - Current: Current Medications Acetaminophen (Tylenol Extra Strength) 1,000 mg PO Q6H PRN PRN Reason: Pain Last Admin: 03/05/19 08:30 Dose: 1,000 mg Allopurinol (Zyloprim) 100 mg PO DAILY [facility] Last Admin: 03/05/19 08:25 Dose: 100 mg Amlodipine Besylate (Norvasc) 2.5 mg PO DAILY [facility] Last Admin: 03/05/19 08:23 Dose: 2.5 mg Apixaban (Eliquis) 2.5 mg PO BID [facility] Last Admin: 03/05/19 08:23 Dose: 2.5 mg Calcitriol (Rocaltrol) 0.25 mcg PO Q2D [facility] Last Admin: 03/04/19 17:23 Dose: 0.25 mcg Calcium Carbonate/Glycine (Tums) 500 mg PO TIDMEALS [facility] Last Admin: 03/05/19 08:32 Dose: 500 mg Cholecalciferol (Vitamin D3) 25 mcg PO DAILY [facility] Last Admin: 03/05/19 08:32 Dose: 25 mcg Docusate Sodium (Colace) 100 mg PO DAILY PRN PRN Reason: Constipation Gabapentin (Neurontin) 300 mg PO DAILY [facility] Last Admin: 03/05/19 08:29 Dose: 300 mg Oxybutynin Chloride (Oxybutynin Er) 15 mg PO DAILY [facility] Last Admin: 03/05/19 08:27 Dose: 15 mg Oxycodone HCl (Oxycodone) 5 - 10 mg PO Q4H PRN PRN Reason: Pain Last Admin: 03/05/19 08:29 Dose: 5 mg Pantoprazole Sodium (Protonix) 40 mg PO BIDAC [facility] Last Admin: 03/05/19 08:27 Dose: 40 mg Polyethylene Glycol (Miralax) 17 gm PO DAILY [facility] Last Admin: 03/05/19 08:32 Dose: Not Given Polyethylene Glycol (Miralax) 17 gm PO DAILY PRN PRN Reason: Constipation Prednisone (Prednisone) 3 mg PO DAILY [facility] Last Admin: 03/05/19 08:25 Dose: 3 mg Senna/Docusate Sodium (Senna Plus) 1 tab PO BID [facility] Last Admin: 03/05/19 08:31 Dose: 1 tab Sertraline HCl (Zoloft) 50 mg PO DAILY [facility] Last Admin: 03/05/19 08:24 Dose: 50 mg Triamcinolone Acetonide (Triamcinolone Acetonide 0.5%) 1 gm TOP Q12HR [facility] Last Admin: 03/05/19 08:31 Dose: Not Given Discontinued Medications Clotrimazole (Clotrimazole 1%) 0 gm TOP BID [facility] Last Admin: 03/02/19 18:26 Dose: Not Given Clotrimazole (Clotrimazole 1%) 0 gm TOP Q12HR [facility] Non-Formulary Medication (Betamethasone Dipropionate [Betamethasone Diprop Augmented]) 1 applic TOP BID PRN PRN Reason: Rash Non-Formulary Medication (Potassium Citrate [Potassium Citrate Er]) 1 tab PO TIDMEALS [facility] Last Admin: 03/02/19 18:51 Dose: Not Given Oxybutynin Chloride (Oxybutynin) 15 mg PO DAILY [facility] Last Admin: 03/03/19 08:07 Dose: 15 mg Polyethylene Glycol (Miralax) 17 gm PO DAILY [facility] Last Admin: 03/04/19 07:03 Dose: 17 gm Polyethylene Glycol (Miralax) 17 gm PO DAILY PRN PRN Reason: Constipation Last Admin: 03/04/19 20:22 Dose: 17 gm Triamcinolone Acetonide (Triamcinolone Acetonide 0.1% Crm) 0 gm TOP Q12H [facility] Last Admin: 03/03/19 00:20 Dose: Not Given Triamcinolone Acetonide (Triamcinolone Acetonide 0.1% Crm) 0.5 gm TOP Q12H [facility] Last Admin: 03/03/19 00:21 Dose: Not Given Triamcinolone Acetonide (Triamcinolone Acetonide 0.5%) 0 gm TOP BID JO - Exam Quality Assessment: Reports: DVT Prophylaxis General: Reports: Alert, Oriented, Cooperative, No Acute Distress HEENT: Reports: Pupils Equal, Pupils Reactive, EOMI, Mucous Membr. Moist/[place] Neck: Reports: Supple Lungs: Reports: Clear to Auscultation, Normal Respiratory Effort Cardiovascular: Reports: Irregular Rhythm (Hx irreg rhythm). Denies: Murmurs GI/Abdominal Exam: Normal Bowel Sounds, Non-Tender, No Distention Back Exam: Denies: CVA Tenderness (L), CVA Tenderness (R), Muscle Spasm, Paraspinal Tenderness, Vertebral Tenderness Extremities: Normal Capillary Refill Skin: Reports: Warm, Dry Wound/Incisions: Reports: Dressing Dry and Intact Neurological: Reports: No New Focal Deficit Psy/Mental Status: Reports: Alert, Normal Affect, Normal Mood
== END 2019-03-05 11:30 | disposition home or self-care (01) | DRG 561 ==
LOC: LL.SWG 15:13 → UNDOADMIN 15:33 → LL.SWG 15:33
PROVIDERS: ADMIT Emergency Medicine; ATTEND Emergency Medicine
DX: Z47.1 Aftercare following joint replacement surgery (principal); Z96.651 Presence of right artificial knee joint; G47.30 Sleep apnea, unspecified; M81.0 Age-related osteoporosis without current pathological fracture; D50.9 Iron deficiency anemia, unspecified; I12.9 Hypertensive chronic kidney disease with stage 1 through stage 4 chronic kidney disease, or unspecified chronic kidney disease; N18.3 Chronic kidney disease, stage 3 (moderate); E11.22 Type 2 diabetes mellitus with diabetic chronic kidney disease; M47.9 Spondylosis, unspecified; K21.9 Gastro-esophageal reflux disease without esophagitis; G89.29 Other chronic pain; R32 Unspecified urinary incontinence; I49.3 Ventricular premature depolarization; Z98.84 Bariatric surgery status; Z88.1 Allergy status to other antibiotic agents; Z88.8 Allergy status to other drugs, medicaments and biological substances; Z79.52 Long term (current) use of systemic steroids; Z79.899 Other long term (current) drug therapy; Z87.891 Personal history of nicotine dependence
CPT/HCPCS: 36415; 80053; 85025; 85610; 97110-GP; 97161-GP; 97165-GO; 97530-GP; A9270-GY

== ENCOUNTER 2020-12-04 12:04 | Inpatient (IN) | payer MEDICARE, BC ==
[2020-12-04] MEDS ORDERED: Acetaminophen 325 MG Tab PO PRN (16:00)
[2020-12-04] MEDS ORDERED: Calcium Carbonate 500 MG Tab.Chew PO PRN (16:00)
[2020-12-04] MEDS ORDERED: Aluminum Hydroxide/Magnesium Hydroxide/Simethicone Susp 30 ML Cup PO PRN (16:00)
[2020-12-04] MEDS ORDERED: Ondansetron 4 MG Tab.DIS PO PRN (16:00)
[2020-12-04] MEDS ORDERED: Acetaminophen/HYDROcodone 325-5 MG Tab PO PRN (16:05)
[2020-12-04] MEDS ORDERED: Non-Formulary Medication 1 Each (Betamethasone Dipropionate [Betamethasone Diprop Augmente TOP PRN (16:05)
[2020-12-04] MEDS ORDERED: InFLIXimab-DYYB 100 MG Vial IV SCH (16:15)
--- NOTE | 2020-12-04 16:18 | PCM.HP.2 ---
H&P History of Present Illness - General Date of Service: 12/04/20 Admit Problem/Dx: Admission Diagnosis/Problem Admission Diagnosis/Problem West Nile Virus infection Source of Information: Patient, Old Records - History of Present Illness Initial Comments - Free Text/Narative: Johnny is a 70 y/o male with multiple chronic conditions who presents to the hospital today for Skilled Swing Bed admission. He was recently discharged from [facility] following a 10 day stay for West Nile Virus. He was admitted to the hospital on 11-22-2020 with fever, myalgias, generalized weakness, dizziness, and headache. He was given broad-spectrum antibiotics and seen by Infectious Disease. He had an extensive workup and was placed on Doxycycline and Cefepime. He did finally test positive for West Nile at the end of his 10 day antibiotic course. While there in the hospital, he also developed some low blood pressure and en extensive Cardiology workup was done. 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 He also does have some underlying Congestive Heart Failure. He was diuresed, but then developed low blood pressures and his anti-hypertensive were cut back. He was sent home with instructions to monitor his BP prior to taking the Furosemide, Aldactone, or Metoprolol. 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 He does live alone there and since getting home, he has been very weak. He does walk with 2 canes for Chronic Low Back pain. This AM he was using the bathroom and then due to weakness he gently fell onto a pile of clothes in his bathroom. He was unable to get back up and did have his cell phone on him so he called his sister, who then called a close by friend who came to help him up. He then walked out side with the friend when he was ready to leave and he was so weak he could not get backup the 3 steps into his house. It was then that he contacted the nurse at [facility] and requested swing b ed admission for strengthening. He is here for PT/OT with the goal of returning back to his home. - Related Data Allergies/Adverse Reactions: Allergies Allergy/AdvReac Type Severity Reaction Status Date / Time celecoxib [From Celebrex] Allergy Bleeding Verified 03/05/19 13:08 naproxen sodium [From Aleve] Allergy Bleeding Verified 03/05/19 13:08 zolpidem tartrate Allergy Disorientat Verified 03/05/19 13:08 [From Jennifer] ion Home Medications: Home Meds Acetaminophen 1,000 mg PO Q12HR 03/02/19 [History] Betamethasone Dipropionate [Betamethasone Diprop Augmented] 1 applic TOP Q12HR PRN 03/02/19 [History] Cholecalciferol (Vitamin D3) [Vitamin D3] 1,000 units PO DAILY 03/02/19 [History] Potassium Citrate [Potassium Citrate ER] 10 meq PO TIDMEALS 03/02/19 [History] Sertraline [Zoloft] 50 mg PO DAILY 03/02/19 [History] allopurinoL [Zyloprim] 100 mg PO DAILY 03/02/19 [History] calcitrioL [Calcitriol] 1 cap PO Q2D 03/02/19 [History] predniSONE [Prednisone] 3 mg PO DAILY 03/02/19 [History] Calcium Carbonate [Calcium] 500 mg PO TIDAC 12/04/20 [History] Ferrous Sulfate [Iron] 325 mg PO DAILY 12/04/20 [History] Furosemide 20 mg PO DAILY PRN 12/04/20 [History] Hydrocodone/Acetaminophen [HYDROcodone-Acetaminophen 5-325 MG] 1 each PO TID PRN 12/04/20 [History] InFLIXimab-DYYB [Inflectra] 100 mg IV ASDIRECTED 12/04/20 [History] Losartan [Cozaar] 25 mg PO DAILY 12/04/20 [History] Metoprolol Succinate [Toprol XL] 25 mg PO DAILY 12/04/20 [History] Non-Formulary Medication [NF Drug] 1 each PO DAILY 12/04/20 [History] Nystatin 15 gm TP Q12HR 12/04/20 [History] Oxybutynin [Oxybutynin ER] 5 mg PO DAILY 12/04/20 [History] Pantoprazole Sodium [Protonix] 20 mg PO BIDAC 12/04/20 [History] Semaglutide [Ozempic] 0.25 mg SQ Q7D 12/04/20 [History] diphenhydrAMINE [Benadryl] 25 mg PO BEDTIME PRN 12/04/20 [History] glipiZIDE [Glipizide ER] 10 mg PO DAILY 12/04/20 [History] Past Medical History HEENT History: Reports: Impaired Vision Cardiovascular History: Reports: Arrhythmia, Cardiomyopathy (Transient Myocarditis secondary to West Nile Virus), Hypertension, Other (See Below) Respiratory History: Reports: Sleep Apnea Gastrointestinal History: Reports: Bowel Obstruction, Chronic Constipation, GERD, GI Bleed, Other (See Below) Other Gastrointestinal History: Hx of abdominal hernia. hx of abdominal hernia Hx of Gastric bypass Genitourinary History: Reports: Chronic Renal Insuffiency, Renal Calculus, Urinary Incontinence Musculoskeletal History: Reports: Arthritis, Back Pain, Chronic, Gout, Osteoporosis, Other (See Below) (Walks with 2 canes; Psoriatic Arthritis on Prednisone) Neurological History: Reports: Headaches, Chronic, Neuropathy, Peripheral Endocrine/Metabolic History: Reports: Diabetes, Type II, Osteoporosis Hematologic History: Reports: Anemia, Iron Deficiency Immunologic History: Reports: Immunosuppression - Past Surgical History GI Surgical History: Reports: Bariatric Procedure, Cholecystectomy, Colonoscopy, Hernia, Inguinal, Hernia Repair/Other Neurological Surgical History: Reports: Lumbar Spine Musculoskeletal Surgical History: Reports: Hip Replacement, Knee Replacement Social & Family History - Family History HEENT: Reports: Cataract, Hearing Impairment Cardiac: Reports: Hypertension, [place] Musculoskeletal: Reports: Arthritis, Gout Endocrine/Metabolic: Reports: Diabetes, type II Dermatologic: Reports: Psoriasis Oncologic: Reports: Pancreatic - Caffeine Use Caffeine Use: Reports: Coffee - Living Situation & Occupation Living situation: Reports: Occupation: Retired Social History Comment: He does not have any children. He has a sister in [place] who he describes as in poor health. Brother is in [place], [place] and comes out to his farm about every 3 days. H&P Review of Systems - Review of Systems: Review Of Systems: See Below General: Reports: Weakness, Fatigue HEENT: Reports: No Symptoms Pulmonary: Reports: No Symptoms Cardiovascular: Reports: No Symptoms Gastrointestinal: Reports: No Symptoms, Mucous in Stool Genitourinary: Reports: No Symptoms Musculoskeletal: Reports: Back Pain Skin: Reports: No Symptoms Psychiatric: Reports: No Symptoms Neurological: Reports: Difficulty Walking, Weakness Hematologic/Lymphatic: Reports: No Symptoms Exam - Exam Exam: See Below - Vital Signs Vital Signs: Last Vital Signs Temp 36.8 C 12/04/20 14:26 Pulse 83 12/04/20 14:26 Resp 14 12/04/20 14:26 BP 90/53 L 12/04/20 14:26 Pulse Ox 96 12/04/20 14:26 - Exam General: Alert, Oriented, Cooperative, Other (Pleasant, Eldery male, appears older than stated age) HEENT: Conjunctiva Clear, Hearing Intact, Pupils Reactive Neck: Supple, Trachea Midline Lungs: Clear to Auscultation, Normal Respiratory Effort Cardiovascular: Regular Rate, Regular Rhythm GI/Abdominal Exam: Normal Bowel Sounds, Soft, Non-Tender (Male) Exam: Deferred Rectal (Males) Exam: Deferred Back Exam: Normal Inspection Extremities: Pedal Edema (non pitting, 2+ Left > Right) Skin: Warm, Dry, Intact Neurological: Cranial Nerves Intact Neuro Extensive - Mental Status: Alert, Oriented x3, Normal Mood/Affect Neuro Extensive - Motor, Sensory, Reflexes: CN II-XII Intact, Normal Gait Psychiatric: Alert, Normal Affect, Normal Mood Sepsis Event Note - Focused Exam Vital Signs: Vital Signs Temp Pulse Resp BP Pulse Ox 12/04/20 14:26 36.8 C 83 14 90/53 L 96 - Problem List (1) West Nile Virus infection SNOMED Code(s): 250228261 ICD Code: A92.30 - WEST NILE VIRUS INFECTION, UNSPECIFIED Status: Acute Current Visit: Yes Onset Date: ~11/22/20 Problem Details: -Finished ourse of Doxycycline and Cefepime during Acute admission at [facility] (2) Weakness SNOMED Code(s): 63135400 ICD Code: R53.1 - WEAKNESS Status: Acute Current Visit: Yes Problem Details: -PT/OT to see patient and determine course of stay. (3) Congestive cardiomyopathy SNOMED Code(s): 765550955 ICD Code: I42.0 - DILATED CARDIOMYOPATHY Status: Acute Current Visit: Yes Problem Details: -Will monitor BPs and continue Lasix and BP meds if SBP greater than 100mm/Hg per Internal Med/Hospitalist recommendations from [facility]. (4) Chronic diastolic (congestive) heart failure SNOMED Code(s): 747471696, 426162502 ICD Code: I50.32 - CHRONIC DIASTOLIC (CONGESTIVE) HEART FAILURE Status: Acute Current Visit: Yes (5) Psoriatic arthritis SNOMED Code(s): 572986948 ICD Code: L40.50 - ARTHROPATHIC PSORIASIS, UNSPECIFIED Status: Acute Current Visit: Yes Problem Details: -Currently on Prednisone. Not due for Remicade yet and will wait until her is discharged to home to resume. (6) Diabetes mellitus type 2 in obese SNOMED Code(s): 71177444 ICD Code: E11.69 - TYPE 2 DIABETES MELLITUS WITH OTHER SPECIFIED COMPLICATION; E66.9 - OBESITY, UNSPECIFIED Status: Acute Current Visit: Yes Problem Details: -Continue meds. Will monitor a BS. Will hold Oxempic at this time due to formulary availability. (7) Mood disorder SNOMED Code(s): 87177666 ICD Code: F39 - UNSPECIFIED MOOD [AFFECTIVE] DISORDER Status: Acute Current Visit: Yes Problem Details: -Stable on Zoloft (8) Hypertension SNOMED Code(s): 75499917 ICD Code: I10 - ESSENTIAL (PRIMARY) HYPERTENSION Status: Chronic Priority: Low Current Visit: No Problem Details: Stable overall. Qualifiers: Hypertension type: unspecified Qualified Code(s): I10 - Essential (primary) hypertension (9) S/P gastric bypass SNOMED Code(s): 058294608, 412563420, 377311444, 394863813 ICD Code: Z98.84 - BARIATRIC SURGERY STATUS Status: Chronic Priority: Low Current Visit: No Problem Details: H/x bariatric surgery (10) Sleep apnea SNOMED Code(s): 51832338 ICD Code: G47.30 - SLEEP APNEA, UNSPECIFIED Status: Chronic Priority: Low Current Visit: No Problem Details: stable per patient Qualifiers: Sleep apnea type: unspecified type Qualified Code(s): G47.30 - Sleep apnea, unspecified Problem List Initiated/Reviewed/Updated: Yes Orders Last 24hrs: Active Orders 24 hr Category Date Time Status Patient Status [ADT] Routine ADT 12/04/20 15:56 Ordered Ambulate [RC] ASDIRECTED Care 12/04/20 15:56 Ordered Blood Glucose Check, Bedside [RC] BIDMEALS Care 12/04/20 15:56 Ordered Height and Weight [RC] PER UNIT ROUTINE Care 12/04/20 15:57 Ordered May Shower [RC] ASDIRECTED Care 12/04/20 15:56 Ordered Oxygen Therapy [RC] PRN Care 12/04/20 15:56 Ordered Up With Assistance [RC] ASDIRECTED Care 12/04/20 15:56 Ordered VTE/DVT Education [RC] PER UNIT ROUTINE Care 12/04/20 15:56 Ordered Vital Signs [RC] PER UNIT ROUTINE Care 12/04/20 15:56 Ordered Consult to Case Management/[employer] Press Tender [CONS] Cons 12/04/20 15:56 Ordered Routine OT Evaluation and Treatment [CONS] Routine Cons 12/04/20 15:56 Ordered PT Evaluation and Treatment [CONS] Routine Cons 12/04/20 15:56 Ordered [employer] [employer] Diet [DIET] Diet 12/04/20 Dinner Ordered BMP [BASIC METABOLIC PANEL,BMP] [CHEM] Routine Lab 12/07/20 16:05 Ordered Acetaminophen [TylenoL] Med 12/04/20 15:56 Ordered 650 mg PO Q4H PRN Acetaminophen [Tylenol Extra Strength] Med 12/04/20 20:00 Ordered 1,000 mg PO Q12HR Acetaminophen/HYDROcodone [[place] 325-5 MG] Med 12/04/20 16:05 Ordered 1 each PO TID PRN Alum Hydrox/Mag Hydrox/Simeth [Mag-Al Plus] Med 12/04/20 15:56 Ordered 30 ml PO Q4H PRN Betamethasone Dipropionate [Betamethasone Diprop Med 12/04/20 16:05 Ordered Augmented] 1 applic TOP Q12HR PRN Calcium Carbonate [Calcium] Med 12/04/20 17:30 Ordered 500 mg PO TIDAC Calcium Carbonate [Tums] Med 12/04/20 15:56 Ordered 500 mg PO Q2HR PRN Cholecalciferol (Vitamin D3) [Vitamin D3] Med 12/05/20 08:00 Ordered 1,000 units PO DAILY Ferrous Sulfate Med 12/05/20 08:00 Ordered 325 mg PO DAILY Furosemide [Lasix] Med 12/04/20 16:05 Ordered 20 mg PO DAILY PRN InFLIXimab-DYYB [Inflectra] Med 12/04/20 16:15 Ordered 100 mg IV ASDIRECTED Losartan [Cozaar] Med 12/05/20 08:00 Ordered 25 mg PO DAILY Metoprolol Succinate [Toprol XL] Med 12/05/20 08:00 Ordered 25 mg PO DAILY Non-Formulary Medication [NF Drug] Med 12/05/20 08:00 Ordered 1 each PO DAILY Nystatin [Nystatin Crm] Med 12/04/20 20:00 Ordered 15 gm TOP Q12HR Ondansetron [Zofran ODT] Med 12/04/20 15:56 Ordered 4 mg PO Q4H PRN Oxybutynin [Oxybutynin ER] Med 12/05/20 08:00 Ordered 5 mg PO DAILY Pantoprazole Sodium [Protonix] Med 12/04/20 17:30 Ordered 20 mg PO BIDAC Potassium Chloride [Klor-Con M20] Med 12/05/20 08:00 Ordered 20 meq PO DAILY Sertraline [Zoloft] Med 12/05/20 08:00 Ordered 50 mg PO DAILY allopurinoL [Zyloprim] Med 12/05/20 08:00 Ordered 100 mg PO DAILY calcitrioL [Rocaltrol] Med 12/04/20 16:15 Ordered 1 cap PO Q2D diphenhydrAMINE [Benadryl] Med 12/04/20 16:05 Ordered 25 mg PO BEDTIME PRN glipiZIDE [Glipizide ER] Med 12/05/20 08:00 Ordered 10 mg PO DAILY predniSONE Med 12/05/20 08:00 Ordered 3 mg PO DAILY Resuscitation Status Routine Resus Stat 12/04/20 15:56 Ordered Medication Orders Acetaminophen (Acetaminophen 325 Mg Tab) 650 mg PO Q4H PRN PRN Reason: Pain (Mild 1-3)/fever Acetaminophen (Acetaminophen 500 Mg Tab) 1,000 mg PO Q12HR JO Hydrocodone Bitart/Acetaminophen (Acetaminophen/Hydrocodone 325-5 Mg Tab) tab PO TID PRN PRN Reason: Pain (severe 7-10) Al Hydroxide/Mg Hydroxide (Aluminum Hydroxide/Magnesium Hydroxide/Simethicone Susp 30 Ml Cup) 30 ml PO Q4H PRN PRN Reason: Nausea Allopurinol (Allopurinol 100 Mg Tab) 100 mg PO DAILY [facility] Calcitriol (Calcitriol 0.25 Mcg Cap) mcg PO Q2D [facility] Calcium Carbonate/Glycine (Calcium Carbonate 500 Mg Tab.Chew) 500 mg PO Q2HR PRN PRN Reason: Nausea Diphenhydramine HCl (Diphenhydramine 12.5 Mg/5 Ml Liquid 5 Ml Ud Cup) 25 mg PO BEDTIME PRN PRN Reason: Insomnia Ferrous Sulfate (Ferrous Sulfate 325 Mg Tab) 325 mg PO DAILY [facility] Furosemide (Furosemide 20 Mg Tab) 20 mg PO DAILY PRN PRN Reason: swelling Infliximab-DYYB (Infliximab-Dyyb 100 Mg Vial) 100 mg IV ASDIRECTED [facility] Metoprolol Succinate (Metoprolol Succinate 25 Mg Tab.Er) 25 mg PO DAILY [facility] Non-Formulary Medication (Betamethasone Dipropionate [Betamethasone Diprop Augmented]) 1 applic TOP Q12HR PRN PRN Reason: Rash Non-Formulary Medication (Calcium Carbonate [Calcium]) 500 mg PO TIDAC JO Non-Formulary Medication (Cholecalciferol (Vitamin D3) [Vitamin D3]) 1,000 units PO DAILY [facility] Non-Formulary Medication (Glipizide [Glipizide Er]) 10 mg PO DAILY [facility] Non-Formulary Medication (Losartan [Cozaar]) 25 mg PO DAILY [facility] Non-Formulary Medication (Non-Formulary Medication 1 Each) 1 each PO DAILY [facility] Non-Formulary Medication (Pantoprazole Sodium [Protonix]) 20 mg PO BIDAC [facility] Nystatin (Nystatin Crm 30 Gm Tube) 15 gm TOP Q12HR [facility] Ondansetron HCl (Ondansetron 4 Mg Tab.Dis) 4 mg PO Q4H PRN PRN Reason: Nausea/Vomiting Oxybutynin Chloride (Oxybutynin 5 Mg Tab.Er) 5 mg PO DAILY [facility] Prednisone (Prednisone 1 Mg Tab) 3 mg PO DAILY [facility] Sertraline HCl (Sertraline 50 Mg Tab) 50 mg PO DAILY [facility] - Mortality Measure Prognosis:: Good
[2020-12-04] MEDS: Pantoprazole 40 MG Tab.CR PO SCH (17:09)
[2020-12-04] MEDS: Calcium Carbonate 500 MG Tab.Chew PO SCH (17:09)
[2020-12-04] MEDS: Acetaminophen 500 MG Tab PO SCH (19:23)
[2020-12-04] MEDS: Nystatin Crm 30 GM Tube TOP SCH (19:24)
[2020-12-05] MEDS: Nystatin Crm 30 GM Tube TOP SCH ×2 (07:31→20:04)
[2020-12-05] MEDS: Furosemide 20 MG Tab PO SCH (07:32)
[2020-12-05] MEDS: Oxybutynin 5 MG Tab.ER PO SCH (07:33)
[2020-12-05] MEDS: Sertraline 50 MG Tab PO SCH (07:33)
[2020-12-05] MEDS: Cholecalciferol (Vitamin D3) 25 MCG Tab PO SCH (07:33)
[2020-12-05] MEDS: Potassium Chloride 20 MEQ Tab.ER PO SCH (07:33)
[2020-12-05] MEDS: Calcium Carbonate 500 MG Tab.Chew PO SCH ×3 (07:34→17:39)
[2020-12-05] MEDS: predniSONE 1 MG Tab PO SCH (07:34)
[2020-12-05] MEDS: glipiZIDE 5 MG Tab.ER PO SCH (07:34)
[2020-12-05] MEDS: Acetaminophen 500 MG Tab PO SCH ×2 (07:35→20:03)
[2020-12-05] MEDS: Allopurinol 100 MG Tab PO SCH (07:35)
[2020-12-05] MEDS: Ferrous Sulfate 325 MG Tab PO SCH (07:35)
[2020-12-05] MEDS: Multivitamins with Iron and Minerals Tab.Chew PO SCH (08:25)
[2020-12-05] MEDS: Calcitriol 0.25 MCG Cap PO SCH (08:25)
[2020-12-05] MEDS: diphenhydrAMINE 12.5 MG/5 ML Liquid 5 ML UD Cup PO PRN ×2 (08:34→20:03)
[2020-12-05] MEDS ORDERED: Metoprolol Succinate 25 MG Tab.ER PO PRN (10:00)
[2020-12-05] MEDS: Pantoprazole 40 MG Tab.CR PO SCH (17:39)
[2020-12-05] MEDS: Hydrocortisone 1% Crm 30 GM Tube TOP SCH (20:03)
[2020-12-06] MEDS: Ferrous Sulfate 325 MG Tab PO SCH (07:29)
[2020-12-06] MEDS: Cholecalciferol (Vitamin D3) 25 MCG Tab PO SCH (07:29)
[2020-12-06] MEDS: Calcium Carbonate 500 MG Tab.Chew PO SCH ×3 (07:29→17:04)
[2020-12-06] MEDS: Acetaminophen 500 MG Tab PO SCH ×2 (07:29→20:31)
[2020-12-06] MEDS: Potassium Chloride 20 MEQ Tab.ER PO SCH (07:29)
[2020-12-06] MEDS: predniSONE 1 MG Tab PO SCH (07:29)
[2020-12-06] MEDS: Hydrocortisone 1% Crm 30 GM Tube TOP SCH ×2 (07:30→20:30)
[2020-12-06] MEDS: Multivitamins with Iron and Minerals Tab.Chew PO SCH (07:30)
[2020-12-06] MEDS: glipiZIDE 5 MG Tab.ER PO SCH (07:30)
[2020-12-06] MEDS: Allopurinol 100 MG Tab PO SCH (07:30)
[2020-12-06] MEDS: Oxybutynin 5 MG Tab.ER PO SCH (07:30)
[2020-12-06] MEDS: Sertraline 50 MG Tab PO SCH (07:30)
[2020-12-06] MEDS: Furosemide 20 MG Tab PO SCH (07:31)
[2020-12-06] MEDS: Nystatin Crm 30 GM Tube TOP SCH ×2 (07:31→20:31)
[2020-12-06] MEDS: Pantoprazole 40 MG Tab.CR PO SCH (17:05)
[2020-12-07] MEDS: Calcium Carbonate 500 MG Tab.Chew PO SCH ×3 (07:23→17:25)
[2020-12-07] MEDS: Multivitamins with Iron and Minerals Tab.Chew PO SCH (07:23)
[2020-12-07] MEDS: glipiZIDE 5 MG Tab.ER PO SCH (07:24)
[2020-12-07] MEDS: Ferrous Sulfate 325 MG Tab PO SCH (07:24)
[2020-12-07] MEDS: Potassium Chloride 20 MEQ Tab.ER PO SCH (07:25)
[2020-12-07] MEDS: Oxybutynin 5 MG Tab.ER PO SCH (07:26)
[2020-12-07] MEDS: Furosemide 20 MG Tab PO SCH (07:26)
[2020-12-07] MEDS: predniSONE 1 MG Tab PO SCH (07:27)
[2020-12-07] MEDS: Acetaminophen 500 MG Tab PO SCH ×2 (07:28→20:21)
[2020-12-07] MEDS: Calcitriol 0.25 MCG Cap PO SCH (07:28)
[2020-12-07] MEDS: Cholecalciferol (Vitamin D3) 25 MCG Tab PO SCH (07:28)
[2020-12-07] MEDS: Sertraline 50 MG Tab PO SCH (07:29)
[2020-12-07] MEDS: Allopurinol 100 MG Tab PO SCH (07:29)
[2020-12-07] MEDS: Hydrocortisone 1% Crm 30 GM Tube TOP SCH ×2 (07:32→20:20)
[2020-12-07] MEDS: Nystatin Crm 30 GM Tube TOP SCH ×2 (07:32→20:20)
[2020-12-07] MEDS: Losartan 50 MG Tab PO PRN (11:27)
[2020-12-07] MEDS: Pantoprazole 40 MG Tab.CR PO SCH (17:24)
[2020-12-08] MEDS: Calcium Carbonate 500 MG Tab.Chew PO SCH ×2 (08:11→11:29)
[2020-12-08] MEDS: Ferrous Sulfate 325 MG Tab PO SCH (08:12)
[2020-12-08] MEDS: Multivitamins with Iron and Minerals Tab.Chew PO SCH (08:12)
[2020-12-08] MEDS: Allopurinol 100 MG Tab PO SCH (08:13)
[2020-12-08] MEDS: Potassium Chloride 20 MEQ Tab.ER PO SCH (08:13)
[2020-12-08] MEDS: Oxybutynin 5 MG Tab.ER PO SCH (08:13)
[2020-12-08] MEDS: Furosemide 20 MG Tab PO SCH (08:13)
[2020-12-08] MEDS: Sertraline 50 MG Tab PO SCH (08:14)
[2020-12-08] MEDS: glipiZIDE 5 MG Tab.ER PO SCH (08:16)
[2020-12-08] MEDS: predniSONE 1 MG Tab PO SCH (08:16)
[2020-12-08] MEDS: Acetaminophen 500 MG Tab PO SCH (08:17)
[2020-12-08] MEDS: Cholecalciferol (Vitamin D3) 25 MCG Tab PO SCH (08:18)
[2020-12-08] MEDS: Nystatin Crm 30 GM Tube TOP SCH (08:20)
[2020-12-08] MEDS: Hydrocortisone 1% Crm 30 GM Tube TOP SCH (08:20)
[2020-12-08 08:45] VITALS: PULSE 73
[2020-12-08] MEDS: Losartan 50 MG Tab PO PRN (11:30)
[2020-12-08 11:32] VITALS: BP 114/73
--- NOTE | 2020-12-08 13:34 | PCM.DCSUM1 ---
Discharge Summary - Hospital Course Free Text/Narrative:: Jhonny is a 70 y.o male who was hospitalized at [facility] following an acute illness found to be West Nile Infection. He was admitted with a fever and underwent IV antibiotics and also finished a course of Doxycycline in [place]. 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 He did have Infectious Disease and Cardiology consults with recommendation for his management at home. He then got home on 12/02/2020. He was very weak and had a couple falls. He then called his PCP, Dr Yoon Ledesma on 12/04/2020 after falling while using the bathroom. He does lives along. He did not sustain any injuries from the fall, but he was very weak and could take care of himself. He was admitted to [facility] here on 12/04/2020 for PT/OT. He has now rested and had assistance from nursing. as of today he has met his P T/OT therapy goals and is ready to go home. He has no low blood pressures documented here in [place] and his BP meds, diuretics, and potassium supplements have all been continued. Diagnosis: Stroke: No - Discharge Data Discharge Date: 12/08/20 Discharge Disposition: Home, Self-Care 01 Condition: Good - Referral to Home Health Primary Care Physician: Yoon Ledesma MD - Discharge Diagnosis/Problem(s) (1) West Nile Virus infection SNOMED Code(s): 517054404 ICD Code: A92.30 - WEST NILE VIRUS INFECTION, UNSPECIFIED Status: Acute Current Visit: Yes Onset Date: ~11/22/20 Problem Details: -Finished ourse of Doxycycline and Cefepime during Acute admission at [facility] (2) Weakness SNOMED Code(s): 55394948 ICD Code: R53.1 - WEAKNESS Status: Acute Current Visit: Yes Problem Details: -Much improved. -PT/OT has seen patient and worked with him this week. He has been discharged from therapy since he has met his goals. -Will continue to use 2 canes for walking when he goes home. (3) Congestive cardiomyopathy SNOMED Code(s): 872170238 ICD Code: I42.0 - DILATED CARDIOMYOPATHY Status: Acute Current Visit: Yes Problem Details: -He has not any SBPs less than 100mm/Hg and he has been receiving Lasix, Toprol XL, and Cozaar as previously prescribed. -Will have PCP continue to monitor. -Has has follow ups scheduled with [facility] in [place] -Will resume home Potassium 10mEq po TID. Will have have PCP monitor potassium levels and adjust as needed. (4) Chronic diastolic (congestive) heart failure SNOMED Code(s): 110739826, 281829002 ICD Code: I50.32 - CHRONIC DIASTOLIC (CONGESTIVE) HEART FAILURE Status: Acute Current Visit: Yes (5) Psoriatic arthritis SNOMED Code(s): 862240093 ICD Code: L40.50 - ARTHROPATHIC PSORIASIS, UNSPECIFIED Status: Acute Current Visit: Yes Problem Details: -Currently on Prednisone. -Resume Remicade per usual schedule. (6) Diabetes mellitus type 2 in obese SNOMED Code(s): 44281114 ICD Code: E11.69 - TYPE 2 DIABETES MELLITUS WITH OTHER SPECIFIED COMPLICATION; E66.9 - OBESITY, UNSPECIFIED Status: Acute Current Visit: Yes Problem Details: -Continue meds. Will monitor a BS. -Resume Oxempic at home which was on hold here in due to formulary availability. (7) Mood disorder SNOMED Code(s): 79424817 ICD Code: F39 - UNSPECIFIED MOOD [AFFECTIVE] DISORDER Status: Acute Current Visit: Yes Problem Details: -Stable on Zoloft (8) Hypertension SNOMED Code(s): 95001835 ICD Code: I10 - ESSENTIAL (PRIMARY) HYPERTENSION Status: Chronic Priority: Low Current Visit: No Problem Details: Stable overall. Qualifiers: Hypertension type: unspecified Qualified Code(s): I10 - Essential (primary) hypertension (9) S/P gastric bypass SNOMED Code(s): 358788170, 290991436, 985723247, 925694784 ICD Code: Z98.84 - BARIATRIC SURGERY STATUS Status: Chronic Priority: Low Current Visit: No Problem Details: H/x bariatric surgery (10) Sleep apnea SNOMED Code(s): 26807374 ICD Code: G47.30 - SLEEP APNEA, UNSPECIFIED Status: Chronic Priority: Low Current Visit: No Problem Details: stable per patient Qualifiers: Sleep apnea type: unspecified type Qualified Code(s): G47.30 - Sleep apnea, unspecified - Patient Summary/Data Consults: Consultations 12/04/20 15:56 Consult to Case Management/Stamp Maker [CONS] Routine OT Evaluation and Treatment [CONS] Routine PT Evaluation and Treatment [CONS] Routine - Patient Instructions Diet: Diabetic Diet Activity: As Tolerated Activity, Other: -Continue PT exercises as advised Driving: May Drive Today Showering/Bathing: May Shower - Discharge Plan *PRESCRIPTION DRUG MONITORING PROGRAM REVIEWED*: Not Applicable *COPY OF PRESCRIPTION DRUG MONITORING REPORT IN PATIENT BIANCA: Not Applicable Prescriptions/Med Rec: Multivitamin W/Iron, Minerals [Multivitamins with Iron] 1 each PO DAILY 30 Days #30 tab.chew Home Medications: Home Meds Acetaminophen 1,000 mg PO Q12HR 03/02/19 [History] Betamethasone Dipropionate [Betamethasone Diprop Augmented] 1 applic TOP Q12HR PRN 03/02/19 [History] Cholecalciferol (Vitamin D3) [Vitamin D3] 1,000 units PO DAILY 03/02/19 [History] Potassium Citrate [Potassium Citrate ER] 10 meq PO TIDMEALS 03/02/19 [History] Sertraline [Zoloft] 50 mg PO DAILY 03/02/19 [History] allopurinoL [Zyloprim] 100 mg PO DAILY 03/02/19 [History] calcitrioL [Calcitriol] 1 cap PO Q2D 03/02/19 [History] predniSONE [Prednisone] 3 mg PO DAILY 03/02/19 [History] Calcium Carbonate [Calcium] 500 mg PO TIDAC 12/04/20 [History] Ferrous Sulfate [Iron] 325 mg PO DAILY 12/04/20 [History] Furosemide 20 mg PO DAILY PRN 12/04/20 [History] Hydrocodone/Acetaminophen [HYDROcodone-Acetaminophen 5-325 MG] 1 each PO TID PRN 12/04/20 [History] InFLIXimab-DYYB [Inflectra] 100 mg IV ASDIRECTED 12/04/20 [History] Losartan [Cozaar] 25 mg PO DAILY 12/04/20 [History] Metoprolol Succinate [Toprol XL] 25 mg PO DAILY 12/04/20 [History] Non-Formulary Medication [NF Drug] 1 each PO DAILY 12/04/20 [History] Nystatin 15 gm TP Q12HR 12/04/20 [History] Oxybutynin [Oxybutynin ER] 5 mg PO DAILY 12/04/20 [History] Pantoprazole Sodium [Protonix] 20 mg PO BIDAC 12/04/20 [History] Semaglutide [Ozempic] 0.25 mg SQ Q7D 12/04/20 [History] glipiZIDE [Glipizide ER] 10 mg PO DAILY 12/04/20 [History] Multivitamin W/Iron, Minerals [Multivitamins with Iron] 1 each PO DAILY 30 Days #30 tab.chew 12/08/20 [Rx] Potassium Chloride [Klor-Con M20] 20 meq PO DAILY tab.er 12/08/20 [Rx] Referrals: Yoon Ledesma MD [Primary Care Provider] - - Discharge Summary/Plan Comment DC Time >30 min.: Yes Total # of Minutes for Discharge Time: 30 - Patient Data Vitals - Most Recent: Last Vital Signs Temp 36.3 C 12/08/20 08:00 Pulse 73 12/08/20 08:00 Resp 18 12/08/20 08:00 BP 114/73 12/08/20 11:30 Pulse Ox 100 12/08/20 08:00 Weight - Most Recent: 85.275 kg I&O - Last 24 hours: Intake & Output 12/07/20 12/08/20 12/08/20 22:59 06:59 14:59 Intake Total 360 180 600 Balance 360 180 600 Lab Results - Last 24 hrs: Laboratory Results - last 24 hr 12/07/20 12/08/20 Range/Units 17:23 08:06 POC Glucose 72 99 (70-99) mg/dL Med Orders - Current: Current Medications Acetaminophen (Acetaminophen 325 Mg Tab) 650 mg PO Q4H PRN PRN Reason: Pain (Mild 1-3)/fever Acetaminophen (Acetaminophen 500 Mg Tab) 1,000 mg PO Q12HR [facility] Last Admin: 12/08/20 08:17 Dose: 1,000 mg Documented by: Hydrocodone Bitart/Acetaminophen (Acetaminophen/Hydrocodone 325-5 Mg Tab) 1 tab PO TID PRN PRN Reason: Pain (severe 7-10) Al Hydroxide/Mg Hydroxide (Aluminum Hydroxide/Magnesium Hydroxide/Simethicone Susp 30 Ml Cup) 30 ml PO Q4H PRN PRN Reason: Nausea Allopurinol (Allopurinol 100 Mg Tab) 100 mg PO DAILY [facility] Last Admin: 12/08/20 08:13 Dose: 100 mg Documented by: Calcitriol (Calcitriol 0.25 Mcg Cap) 0.25 mcg PO Q2D [facility] Last Admin: 12/07/20 07:28 Dose: 0.25 mcg Documented by: Calcium Carbonate/Glycine (Calcium Carbonate 500 Mg Tab.Chew) 500 mg PO Q2HR PRN PRN Reason: Nausea Calcium Carbonate/Glycine (Calcium Carbonate 500 Mg Tab.Chew) 500 mg PO TIDAC [facility] Last Admin: 12/08/20 11:29 Dose: 500 mg Documented by: Cholecalciferol (Cholecalciferol (Vitamin D3) 25 Mcg Tab) 25 mcg PO DAILY [facility] Last Admin: 12/08/20 08:18 Dose: 25 mcg Documented by: Diphenhydramine HCl (Diphenhydramine 12.5 Mg/5 Ml Liquid 5 Ml Ud Cup) 25 mg PO BEDTIME PRN PRN Reason: Insomnia Last Admin: 12/05/20 20:03 Dose: 25 mg Documented by: Ferrous Sulfate (Ferrous Sulfate 325 Mg Tab) 325 mg PO DAILY [facility] Last Admin: 12/08/20 08:12 Dose: 325 mg Documented by: Furosemide (Furosemide 20 Mg Tab) 20 mg PO DAILY [facility] Last Admin: 12/08/20 08:13 Dose: 20 mg Documented by: Glipizide (Glipizide 5 Mg Tab.Er) 10 mg PO DAILY [facility] Last Admin: 12/08/20 08:16 Dose: 10 mg Documented by: Losartan Potassium (Losartan 50 Mg Tab) 25 mg PO DAILY@1200 PRN PRN Reason: SYSTOLIC BP GREATER THAN 100 Last Admin: 12/08/20 11:30 Dose: 25 mg Documented by: Metoprolol Succinate (Metoprolol Succinate 25 Mg Tab.Er) 25 mg PO DAILY@1000 PRN PRN Reason: SYSTOLIC BP GREATER THAN 100 Last Admin: 12/07/20 10:19 Dose: 25 mg Documented by: Multivitamins/Folic Acid/Vitamin C (Multivitamins With Iron And Minerals Tab.Chew) 1 each PO DAILY [facility] Last Admin: 12/08/20 08:12 Dose: 1 each Documented by: Nystatin (Nystatin Crm 30 Gm Tube) 0 gm TOP Q12HR [facility] Last Admin: 12/08/20 08:20 Dose: 1 applic Documented by: Ondansetron HCl (Ondansetron 4 Mg Tab.Dis) 4 mg PO Q4H PRN PRN Reason: Nausea/Vomiting Oxybutynin Chloride (Oxybutynin 5 Mg Tab.Er) 5 mg PO DAILY [facility] Last Admin: 12/08/20 08:13 Dose: 5 mg Documented by: Pantoprazole Sodium (Pantoprazole 40 Mg Tab.Cr) 40 mg PO QPM [facility] Last Admin: 12/07/20 17:24 Dose: 40 mg Documented by: Potassium Chloride (Potassium Chloride 20 Meq Tab.Er) 20 meq PO DAILY [facility] Last Admin: 12/08/20 08:13 Dose: 20 meq Documented by: Prednisone (Prednisone 1 Mg Tab) 3 mg PO DAILY [facility] Last Admin: 12/08/20 08:16 Dose: 3 mg Documented by: Sertraline HCl (Sertraline 50 Mg Tab) 50 mg PO DAILY [facility] Last Admin: 12/08/20 08:14 Dose: 50 mg Documented by: Discontinued Medications Hydrocortisone (Hydrocortisone 1% Crm 30 Gm Tube) 0 gm TOP BID@, [facility] Stop: 12/08/20 08:01 Last Admin: 12/08/20 08:20 Dose: 1 applic Documented by: Non-Formulary Medication (Betamethasone Dipropionate [Betamethasone Diprop Augmented]) 1 applic TOP Q12HR PRN PRN Reason: Rash
== END 2020-12-08 14:15 | disposition home or self-care (01) | DRG 947 ==
LOC: LL.MS 14:24 → LL.SWG 12-06 13:07
PROVIDERS: ADMIT Nurse Practitioner Family; ATTEND Nurse Practitioner Family
DX: R53.1 Weakness (principal); A92.30 West Nile virus infection, unspecified; I42.0 Dilated cardiomyopathy; I50.32 Chronic diastolic (congestive) heart failure; L40.50 Arthropathic psoriasis, unspecified; F39 Unspecified mood [affective] disorder; E66.9 Obesity, unspecified; I10 Essential (primary) hypertension; G47.30 Sleep apnea, unspecified; K59.09 Other constipation; K21.9 Gastro-esophageal reflux disease without esophagitis; N18.9 Chronic kidney disease, unspecified; E11.42 Type 2 diabetes mellitus with diabetic polyneuropathy; M81.0 Age-related osteoporosis without current pathological fracture; H54.7 Unspecified visual loss; Z96.649 Presence of unspecified artificial hip joint; Z96.659 Presence of unspecified artificial knee joint; Z90.49 Acquired absence of other specified parts of digestive tract; Z98.84 Bariatric surgery status; Z88.1 Allergy status to other antibiotic agents; Z88.8 Allergy status to other drugs, medicaments and biological substances; Z79.899 Other long term (current) drug therapy
CPT/HCPCS: 36415; 80048; 82947; 97110-GO; 97110-GP; 97162-GP; 97165-GO; 97530-GP; 99239; 99306; A9270-GY; J7512

== ENCOUNTER 2021-10-15 18:28 | Emergency (ER) | payer MEDICARE, BC | END 2021-10-15 19:50 | disposition home or self-care (01) | LOC: LL.ED 18:28 | DX: S80.11XA Contusion of right lower leg, initial encounter (principal); E11.42 Type 2 diabetes mellitus with diabetic polyneuropathy; I12.9 Hypertensive chronic kidney disease with stage 1 through stage 4 chronic kidney disease, or unspecified chronic kidney disease; E11.22 Type 2 diabetes mellitus with diabetic chronic kidney disease; N18.9 Chronic kidney disease, unspecified; Z88.5 Allergy status to narcotic agent; Z79.899 Other long term (current) drug therapy; W20.8XXA Other cause of strike by thrown, projected or falling object, initial encounter | CPT/HCPCS: 73590-RT; 99283 ==

== ENCOUNTER 2022-08-23 18:15 | Emergency (ER) | payer MEDICARE, BC ==
[2022-08-23] MEDS ORDERED: Lidocaine 1% 5 ML VIAL INJECT ONE (18:54)
[2022-08-23] MEDS ORDERED: Bacitracin/Neomycin/Polymyxin B Oint 0.9 GM U/D Packet TOP ONE (19:56)
== END 2022-08-23 20:30 | disposition home or self-care (01) ==
LOC: LL.ED 18:15
DX: S01.81XA Laceration without foreign body of other part of head, initial encounter (principal); I11.9 Hypertensive heart disease without heart failure; I12.9 Hypertensive chronic kidney disease with stage 1 through stage 4 chronic kidney disease, or unspecified chronic kidney disease; E11.22 Type 2 diabetes mellitus with diabetic chronic kidney disease; N18.9 Chronic kidney disease, unspecified; Z88.6 Allergy status to analgesic agent; Z88.8 Allergy status to other drugs, medicaments and biological substances; Z79.899 Other long term (current) drug therapy; W22.09XA Striking against other stationary object, initial encounter; Y92.009 Unspecified place in unspecified non-institutional (private) residence as the place of occurrence of the external cause
CPT/HCPCS: 12011; 99283; 99284; J3490

== ENCOUNTER 2023-06-02 17:47 | Emergency (ER) | payer MEDICARE, BC ==
[2023-06-02 18:36] LABS: BASOPHILS ABSOLUTE AUTO 0.04 K/uL (0.00-0.20); BASOPHILS PERCENT AUTO 0.5 % (0.0-2.0); EOSINOPHILS PERCENT AUTO 1.3 % (0.0-5.0); HEMOGLOBIN 10.8 g/dL (13.1-16.8); LYMPHOCYTES ABSOLUTE AUTO 1.39 K/uL (0.50-3.50); LYMPHOCYTES PERCENT AUTO 17.8 % (10.0-50.0); MEAN CORPUSCULAR HEMOGLOBIN 32.3 pg (28.2-33.3); MEAN CORPUSCULAR HGB CONC 31.8 g/dL (31.7-36.0); MEAN CORPUSCULAR VOLUME 101.8 fL (84.0-98.0); MONOCYTES ABSOLUTE AUTO 0.69 K/uL (0.00-1.00); MONOCYTES PERCENT AUTO 8.9 % (2.0-14.0); NEUTROPHILS ABSOLUTE AUTO 5.57 K/uL (1.40-7.00); NEUTROPHILS PERCENT AUTO 71.5 % (45.0-80.0); PLATELET COUNT,PLT 149 K/uL (150-350); RED BLOOD CELL COUNT 3.34 M/uL (4.33-5.41); RED CELL DISTRIBUTION WIDTH 13.9 % (11.2-14.1); WHITE BLOOD CELL COUNT,WBC 7.8 K/uL (4.0-10.2)
[2023-06-02] MEDS ORDERED: Bacitracin Oint 1 GM U/D Packet TOP ONE (19:24)
== END 2023-06-02 21:30 | disposition home or self-care (01) ==
LOC: LL.ED 17:47
DX: S12.101A Unspecified nondisplaced fracture of second cervical vertebra, initial encounter for closed fracture (principal); S00.83XA Contusion of other part of head, initial encounter; I12.9 Hypertensive chronic kidney disease with stage 1 through stage 4 chronic kidney disease, or unspecified chronic kidney disease; N18.9 Chronic kidney disease, unspecified; E11.22 Type 2 diabetes mellitus with diabetic chronic kidney disease; E11.42 Type 2 diabetes mellitus with diabetic polyneuropathy; K21.9 Gastro-esophageal reflux disease without esophagitis; Z79.899 Other long term (current) drug therapy; Z79.84 Long term (current) use of oral hypoglycemic drugs; Z88.1 Allergy status to other antibiotic agents; Z88.6 Allergy status to analgesic agent; Z88.8 Allergy status to other drugs, medicaments and biological substances; W18.30XA Fall on same level, unspecified, initial encounter; Y93.01 Activity, walking, marching and hiking
CPT/HCPCS: 36415; 70450; 70486; 72125; 85025; 99284

== ENCOUNTER 2024-01-08 20:32 | Emergency (ER) | payer MEDICARE, BC ==
[2024-01-08 20:37] VITALS: BP 136/88; PULSE 85
[2024-01-08] MEDS: Bacitracin Oint 1 GM U/D Packet TOP ONE (22:22)
== END 2024-01-08 22:40 | disposition home or self-care (01) ==
LOC: LL.ED 20:32
DX: S01.01XA Laceration without foreign body of scalp, initial encounter (principal); I12.9 Hypertensive chronic kidney disease with stage 1 through stage 4 chronic kidney disease, or unspecified chronic kidney disease; N18.9 Chronic kidney disease, unspecified; I25.10 Atherosclerotic heart disease of native coronary artery without angina pectoris; E11.9 Type 2 diabetes mellitus without complications; Z90.49 Acquired absence of other specified parts of digestive tract; Z79.899 Other long term (current) drug therapy; Z88.8 Allergy status to other drugs, medicaments and biological substances; Z88.6 Allergy status to analgesic agent; W01.0XXA Fall on same level from slipping, tripping and stumbling without subsequent striking against object, initial encounter
CPT/HCPCS: 12001; 70450; 99283